=== PATIENT | male | born 1960 | race Caucasian/White ===

== ENCOUNTER 2016-11-26 15:36 | Emergency (ER) | payer OTHER ==
[2016-11-26] MEDS ORDERED: NICOTINE 21 MG/24 HOURS TOPICAL PATCH TD ONE (15:54)
[2016-11-26 16:01] VITALS: BP 137/73; PULSE 75; TEMP 97.5; BMI 19.5
--- NOTE | 2016-11-26 16:05 | PDOC ---
Attending Attestation - Resident Resident Name: Robert Garcia - ED Attending Attestation I have performed the following: I have examined & evaluated the patient, The case was reviewed & discussed with the resident, I agree w/resident's findings & plan, Exceptions are as noted - HPI HPI: 11/26/16 18:38 The patient is a 56 year old male, with significant past medical history of seizures and pseudoseizures (on Dilantin), PTSD who presents to the emergency room BIBA s/p 3 seizures, nausea, vomiting and diarrhea starting at 5am this morning. The patient fell multiple times when he was seizing and the sister in law reports that he hit his head and right shoulder when he fell. Sister in law reports generalized tonic clonic seizure where his entire body shakes, he loses consiousness and he has urine incontinence. He was also sweating profusely as per his sister in law. He notes that he had multiple episodes of vomiting that is yellow in color. The sister in law states that he has not had a seizure in a long time and believes that it may have been triggered when the patient received bad news about his son yesterday. The patient admits that he has only been intermittently taking his dilantin as well. He has an appointment on Thursday with Dr. Buchanan from the [facility] (per his ). Denies tarry and bloody stool. Denies fever, chills, nausea, vomiting. Denies hematemesis. Denies any urinary changes. Denies focal weakness or numbness. - Physicial Exam PE: 11/26/16 20:48 GENERAL: Awake, alert, and fully oriented, in no acute distress. Thin with temporal wasting HEAD: No signs of trauma EYES: PERRLA, EOMI, sclera anicteric, conjunctiva clear ENT: Auricles normal inspection, hearing grossly normal, nares patent, oropharynx clear without exudates. dry MM, poor dentition NECK: Normal ROM, supple, no lymphadenopathy, JVD, or masses LUNGS: Breath sounds equal, clear to auscultation bilaterally. No wheezes, and no crackles HEART: Regular rate and rhythm, normal S1 and S2, no murmurs, rubs or gallops ABDOMEN: Soft, nontender, normoactive bowel sounds. No guarding, no rebound. No masses EXTREMITIES: No ttp over R or L shoulders, no deformities. Normal range of motion, no edema. No clubbing or cyanosis. No cords, erythema, or tenderness. 2 + radial pulses. BACK: No midline spinal tendernes in cervial/throacic/lumbar region NEUROLOGICAL: Normal speech, cranial nerves intact, negative pronator drift, 5/ 5 strength in all 4 extremities, normal sensation to light touch in all 4 extremities, normal cerebellar exam, normal gait, normal reflexes and tone SKIN: Warm, Dry, normal turgor, no rashes or lesions noted. - Medical Decision Making 11/26/16 20:48 56yo M hx seizures and pseudoseizures, PTSD p/w 3 seizures in the setting of non bloody vomiting and diarrhea. + LOC and headstrike. Pt reports poor compliance with his dilantin. Exam here non focal and atraumatic. Will search for reversible causes of multiple seizures, including metabolic vs
--- NOTE | 2016-11-26 17:39 | PDOC ---
History of Present Illness - General Chief Complaint: Seizure Stated Complaint: SEIZURE Time Seen by Provider: 11/26/16 15:42 History Source: Patient Exam Limitations: No Limitations - History of Present Illness Initial Comments: 11/26/16 17:37 Patient was brought in by EMS for suspected seizures, falls, and LOC. Was combative, argumentative, and yelling on multiple occasions. Security was called twice. I have passed care for the patient to my attending. Past History - Past Medical History Allergies/Adverse Reactions: Allergies Allergy/AdvReac Type Severity Reaction Status Date / Time No Known Allergies Allergy Verified 11/26/16 16:01 Home Medications: Ambulatory Orders NK [No Known Home Medication] 11/26/16 Anemia: No Cardiac Disorders: No CVA: No COPD: No CHF: No HTN: No Hypercholesterolemia: No Seizures: Yes - Immunization History Immunization Up to Date: Yes - Suicide/Smoking/Psychosocial Hx Smoking History: Current every day smoker Have you smoked in the past 12 months: Yes Number of Cigarettes Smoked Daily: 10 Cigars Per Day: 10 Information on smoking cessation initiated: Yes 'Breaking Loose' booklet given: 02/27/15 Hx Alcohol Use: No Drug/Substance Use Hx: No Substance Use Type: None Hx Substance Use Treatment: No Review of Systems - Review of Systems Able to Perform ROS?: No *Physical Exam - Vital Signs Last Vital Signs Temp Pulse Resp BP Pulse Ox 97.5 F L 75 18 137/73 99 11/26/16 15:40 11/26/16 15:40 11/26/16 15:40 11/26/16 15:40 11/26/16 15:40 - Physical Exam Comments: 11/26/16 17:38 Combative and argumentative. PE not done. ED Treatment Course - LABORATORY CBC & Chemistry Diagram: 11/26/16 19:00 11/26/16 22:20 - Medications Given in the ED: ED Medications Discontinued Medications Generic Name Dose Route Start Last Admin Trade Name Freq PRN Reason Stop Dose Admin Nicotine 21 mg 11/26/16 15:54 11/26/16 16:58 Nicoderm Patch - TD 11/26/16 15:55 21 mg ONCE ONE Administration Medical Decision Making - Medical Decision Making 11/26/16 17:38 Patient was seen by attending. *DC/Admit/Observation/Transfer Diagnosis at time of Disposition: Seizure disorder - Discharge Dispostion Disposition: ELP Condition at time of disposition: Improved - Patient Instructions Printed Discharge Instructions: DI for Seizure Disorder -- Adult
[2016-11-26 19:16] LABS: BASOPHIL 0.7 % (0-2.0); EOSINOPHIL 0.2 % (0-4.5); MCH 31.3 pg (25.7-33.7); MCHC 34.2 g/dl (32.0-35.9); MEAN CELL VOLUME 91.7 fl (80-96); MEAN PLT VOLUME 7.2 fl (7.5-11.1); NEUTROPHILS 71.2 % (42.8-82.8); PLATELET COUNT 294 K/MM3 (134-434); RDW 14.1 % (11.9-15.9); WHITE BLOOD COUNT 7.6 K/mm3 (4.0-10.0)
[2016-11-26] MEDS ORDERED: SODIUM CHLORIDE 0.9% 500 ML INFUS.BAG IV ONE (20:14)
[2016-11-26] MEDS ORDERED: PHENYTOIN NA EXTENDED 100 MG CAPSULE (FP) PO ONE (21:30)
[2016-11-26] MEDS ORDERED: PHENYTOIN NA EXTENDED 100 MG CAPSULE (FP) ONE (21:58)
--- NOTE | 2016-11-26 22:12 | PDOC ---
*Physical Exam - Vital Signs Last Vital Signs Temp Pulse Resp BP Pulse Ox 97.5 F L 75 18 137/73 99 11/26/16 15:40 11/26/16 15:40 11/26/16 15:40 11/26/16 15:40 11/26/16 15:40 ED Treatment Course - LABORATORY CBC & Chemistry Diagram: 11/26/16 19:00 11/26/16 19:00 - ADDITIONAL ORDERS Additional order review: Laboratory Results 11/26/16 11/26/16 19:00 19:00 Sodium Cancelled Potassium Cancelled Chloride Cancelled Carbon Dioxide Cancelled Anion Gap Cancelled BUN Cancelled Creatinine Cancelled Creat Clearance w eGFR Cancelled Random Glucose Cancelled Calcium Cancelled Magnesium Cancelled Total Bilirubin Cancelled AST Cancelled ALT Cancelled Alkaline Phosphatase Cancelled Total Protein Cancelled Albumin Cancelled Phenytoin < 2.5 L D 11/26/16 19:00 RBC 5.25 MCV 91.7 MCHC 34.2 RDW 14.1 MPV 7.2 L Neutrophils % 71.2 D Lymphocytes % 22.5 D Monocytes % 5.4 Eosinophils % 0.2 D Basophils % 0.7 - Medications Given in the ED: ED Medications Discontinued Medications Generic Name Dose Route Start Last Admin Trade Name Darq PRN Reason Stop Dose Admin Nicotine 21 mg 11/26/16 15:54 11/26/16 16:58 Nicoderm Patch - TD 11/26/16 15:55 21 mg ONCE ONE Administration Medical Decision Making - Medical Decision Making 11/26/16 22:49 while awaiting the rest of his labs, pt suddenly became combative and began to walk out. Both security and [employer] was called. 11/26/16 22:51 Pt did take 500mg of the 1gram of Dilantin that was ordered. *DC/Admit/Observation/Transfer Diagnosis at time of Disposition: Seizure disorder - Discharge Dispostion Disposition: ELOPED Condition at time of disposition: Improved Admit: No - Patient Instructions Printed Discharge Instructions: DI for Seizure Disorder -- Adult
[2016-11-26 23:05] LABS: ALBUMIN 3.7 g/dl (3.4-5.0); ANION GAP 11 (8-16); BILIRUBIN,TOTAL 0.6 mg/dL (0.2-1.0); CALCIUM 9.1 mg/dL (8.5-10.1); CO2 26 mmol/L (21-32); GLUCOSE,RANDOM 106 mg/dL (74-106); SGOT/AST 10 U/L (15-37); SGPT/ALT 17 U/L (12-78); TOT PROT 6.5 g/dl (6.4-8.2)
[2016-11-26 23:06] LABS: ALK PHOS 85 U/L (45-117)
--- NOTE | 2016-11-27 10:27 | EKG ---
Test Reason : Blood Pressure : / mmHG Vent. Rate : 072 BPM Atrial Rate : 072 BPM P-R Int : 158 ms QRS Dur : 098 ms QT Int : 388 ms P-R-T Axes : 070 -11 050 degrees QTc Int : 424 ms NORMAL SINUS RHYTHM INCOMPLETE RIGHT BUNDLE BRANCH BLOCK CANNOT RULE OUT ANTERIOR INFARCT , AGE UNDETERMINED ABNORMAL ECG NO PREVIOUS ECGS AVAILABLE Confirmed by NILA DEVINE MD ([id number]) on 11/27/2016 10:26:25 AM Referred By: Confirmed By:NILA DEVINE MD
[2016-11-27] MEDS ORDERED: NICOTINE 21 MG/24 HOURS TOPICAL PATCH TD ONE (15:54)
== END 2016-11-26 22:45 | disposition left against medical advice (07) ==
LOC: JER 15:36
PROC: 3E0337Z Introduction of Electrolytic and Water Balance Substance into Peripheral Vein, Percutaneous Approach (ICD-10-PCS; principal; 2016-11-26)
DX: G40.909 Epilepsy, unspecified, not intractable, without status epilepticus (principal); F43.10 Post-traumatic stress disorder, unspecified
CPT/HCPCS: 36415; 70450-TC; 71020-TC; 73030-TC-RT; 80053; 80185; 85025; 93005; 93010; 99283-25

== ENCOUNTER 2017-07-08 00:53 | Emergency (ER) | payer OTHER ==
[2017-07-08] MEDS ORDERED: PRESCRIPTION PAD 1 EACH EACH NR ONE (03:12)
[2017-07-08 04:55] LABS: HEMATOCRIT 43.1 % (35.4-49); HEMOGLOBIN 14.5 GM/dL (11.7-16.9); MCHC 33.6 g/dl (32.0-35.9); PLATELET COUNT 293 K/MM3 (134-434); RBC 4.68 M/mm3 (4.00-5.60); RDW 14.7 % (11.9-15.9); WHITE BLOOD COUNT 7.5 K/mm3 (4.0-10.0)
[2017-07-08 04:56] LABS: BASO % 0.3 % (0-2.0); EOS % 0.2 % (0-4.5); LYMPH % 18.3 % (8-40); MEAN PLT VOLUME 7.8 fl (7.5-11.1); MONO % 5.3 % (3.8-10.2); NEUT % 75.9 % (42.8-82.8)
[2017-07-08 05:28] LABS: ALBUMIN 3.9 g/dl (3.4-5.0); ALK PHOS 77 U/L (45-117); ANION GAP 14 (8-16); BILIRUBIN,TOTAL 0.6 mg/dL (0.2-1.0); BLOOD UREA NITROGEN 15 mg/dL (7-18); CALCIUM 9.2 mg/dL (8.5-10.1); CHLORIDE 106 mmol/L (98-107); CO2 22 mmol/L (21-32); GLUCOSE,RANDOM 115 mg/dL (74-106); POTASSIUM 3.9 mmol/L (3.5-5.1); SGOT/AST 20 U/L (15-37); SGPT/ALT 21 U/L (12-78); SODIUM 142 mmol/L (136-145); TOT PROT 7.3 g/dl (6.4-8.2)
[2017-07-08 05:31] LABS: LIPASE 92 U/L (73-393)
== END 2017-07-08 03:00 | disposition home or self-care (01) ==
LOC: FER 00:53
DX: R11.2 Nausea with vomiting, unspecified (principal)
CPT/HCPCS: 36415; 80053; 83690; 85025

== ENCOUNTER 2018-03-01 10:20 | Emergency (ER) | payer OTHER ==
[2018-03-01] MEDS ORDERED: SODIUM CHLORIDE 1,000 ML IV ONE (10:34)
[2018-03-01] MEDS ORDERED: ACETAMINOPHEN 1000 MG/100 ML VIAL (NON FORMULARY) IVPB ONE (10:34)
[2018-03-01] MEDS ORDERED: FAMOTIDINE 20 MG/50 ML IVPB 20 MG/50 ML MG IVPB ONE ×2 (10:34→11:12)
[2018-03-01] MEDS ORDERED: ONDANSETRON 4 MG/2 ML VIAL IVPB ONE (10:34)
[2018-03-01 10:37] VITALS: TEMP 97.6; BMI 25.1
[2018-03-01] MEDS ORDERED: ONDANSETRON 4 MG/2 ML VIAL ONE (10:57)
[2018-03-01] MEDS ORDERED: LORazepam 2 MG/ML SDV VIAL ONE (10:57)
[2018-03-01] MEDS ORDERED: ACETAMINOPHEN INJECTION 100 ML IVPB ONE (10:57)
[2018-03-01 11:05] LABS: BASO % 1.6 % (0-2.0); EOS % 0.2 % (0-4.5); HEMATOCRIT 47.6 % (35.4-49); HEMOGLOBIN 15.5 GM/dl (11.7-16.9); LYMPH % 14.5 % (8-40); MCH 30.5 pg (25.7-33.7); MCHC 32.7 g/dl (32.0-35.9); MEAN CELL VOLUME 93.5 fl (80-96); MEAN PLT VOLUME 7.7 fl (7.5-11.1); NEUT % 76.7 % (42.8-82.8); PLATELET COUNT 332 K/MM3 (134-434); RBC 5.09 M/mm3 (4.00-5.60); RDW 14.1 % (11.9-15.9); WHITE BLOOD COUNT 8.2 K/mm3 (4.0-10.8)
--- NOTE | 2018-03-01 11:07 | PDOC ---
History of Present Illness - General Chief Complaint: Vomiting/Diarrhea Stated Complaint: dehydration Time Seen by Provider: 03/01/18 10:34 History Source: Patient, Friend, Old Records Exam Limitations: No Limitations - History of Present Illness Initial Comments: 03/01/18 11:01 57-year-old male with history of seizures on Dilantin presents with friend complaining of 3-4 days of URI symptoms and nausea/vomiting/diarrhea. Patient was at his baseline health, developed nasal congestion and rhinorrhea with dry cough and sneezing, chills and fevers, and subsequently nausea with nonbloody/ nonbilious vomiting and nonbloody diarrhea with decreased oral intake but no abdominal pain. Patient has been unable to tolerate his medications, presents for evaluation and dehydration. No recent travel, no recent antibiotics, girlfriend recently had similar URI symptoms. Patient has been seen in the past per the medical record for nausea/vomiting, diagnosed with gastritis and improved with GI cocktails in the past. Of note, patient has record of being belligerent with hospital staff. No surgical history, no urinary complaints. The patient does smoke cigarettes and marijuana, denies any other drug use or alcohol use. Past History - Past Medical History Allergies/Adverse Reactions: Allergies Allergy/AdvReac Type Severity Reaction Status Date / Time No Known Allergies Allergy Verified 03/01/18 10:32 Home Medications: Ambulatory Orders Ondansetron [Zofran *Odt*] 8 mg SL TID PRN #20 od.tablet 03/01/18 Phenytoin Na Extended [Dilantin -] 100 mg PO ASDIR 03/01/18 Anemia: No Cardiac Disorders: No CVA: No COPD: No CHF: No HTN: No Hypercholesterolemia: No Seizures: Yes - Immunization History Immunization Up to Date: Yes - Suicide/Smoking/Psychosocial Hx Smoking History: Current every day smoker Have you smoked in the past 12 months: Yes Number of Cigarettes Smoked Daily: 10 Cigars Per Day: 10 Information on smoking cessation initiated: Yes 'Breaking Loose' booklet given: 02/27/15 Hx Alcohol Use: No Drug/Substance Use Hx: Yes (marijuana) Substance Use Type: None Hx Substance Use Treatment: No Review of Systems - Review of Systems Constitutional: Yes: Chills, Fever Respiratory: Yes: Cough. No: Shortness of Breath Cardiac (ROS): No: Chest Pain, Syncope ABD/GI: Yes: Diarrhea, Nausea, Vomiting : No: Dysuria, Flank Pain Neurological: No: Headache All Other Systems: Reviewed and Negative *Physical Exam - Vital Signs Last Vital Signs Temp Pulse Resp BP Pulse Ox 97.6 F 85 16 128/87 100 03/01/18 10:31 03/01/18 10:31 03/01/18 10:31 03/01/18 10:31 03/01/18 10:31 - Physical Exam Comments: 03/01/18 11:07 Afebrile here with normal vital signs GENERAL: The patient is awake, alert, and fully oriented, in moderate distress and notably histrionic (screaming for a blanket). + dry cough during exam, + thick yellow nasal discharge HEAD: Normal with no signs of trauma. EYES: PERRL, EOMI, sclera anicteric, conjunctiva clear with no pallor. ENT: oropharynx clear without exudates. Dry mucous membranes. NECK: Normal range of motion, supple without lymphadenopathy, JVD, or masses. LUNGS: Slight coarse breath sounds L base, otherwise clear without wheeze/ crackles. HEART: Regular rate and rhythm, normal S1 and S2 without murmur or rub. ABDOMEN: Thin. Soft/nontender/nondistended. BS wnl. No guarding or rebound. No palpable masses. No hepatosplenomegaly. EXTREMITIES: Normal range of motion, no edema. 2+ distal pulses. No cords, erythema, or tenderness. NEUROLOGICAL: Cranial nerves II through XII grossly intact. Normal speech, normal gait. PSYCH: Aggressive but cooperative with exam, denies SI/HI/AH/VH. SKIN: Warm, Dry, no rashes or lesions noted. Moderate Sedation - Procedure Monitoring Vital Signs: Procedure Monitoring Vital Signs Temperature 97.6 F 03/01/18 10:31 Pulse Rate 85 03/01/18 10:31 Respiratory Rate 16 03/01/18 10:31 Blood Pressure 128/87 03/01/18 10:31 O2 Sat by Pulse Oximetry (%) 100 03/01/18 10:31 Heart Score/ECG Review #1 ECG reviewed & interpreted by me at: 11:21 General ECG Interpretation: Sinus Rhythm, Normal Rate (59), Normal Intervals ( qtc 423, irbbb), No acute ischemic changes ED Treatment Course - LABORATORY CBC & Chemistry Diagram: 03/01/18 10:45 03/01/18 10:45 - RADIOLOGY Radiology Studies Ordered: Category Date Time Status CHEST X-RAY PORTABLE* [RAD] Stat Radiology 03/01/18 10:35 Ordered Medical Decision Making - Medical Decision Making 03/01/18 11:09 57-year-old male with history of seizures resents with 3-4 days of URI symptoms and gastroenteritis type symptoms, slight coarse breath sounds at left base but no peritoneal findings on exam. Presentation could be most consistent with viral etiology, influenza-like illness. Low clinical suspicion for focal infectious process in the abdomen. labs including lipase, trop, and influenza swab ivf rehydration, pain and nausea control recommended IV dilantin since he has been off meds for 3 days but patient refusing "because it melendez" so will attempt oral dose after meds. No sz activity. cxr, ekg reassess 03/01/18 11:49 labs wnl, no leukocytosis trop, lipase, influenza pending. on my prelim review of the cxr, there are no acute abnormalities sxs resolved and now asleep 03/01/18 12:08 comfortably asleep. cxr official read normal awaiting lipase and influenza results then will dispo 03/01/18 13:14 lipase and flu wnl. pt feels MUCH better, tolerating PO, pain resolved. agrees with d/c plan, declined the ordered dilantin and says he wants to take his dose at home. understands return criteria, zofran sent to pharmacy. *DC/Admit/Observation/Transfer Diagnosis at time of Disposition: Vomiting and diarrhea URI (upper respiratory infection) Qualifiers: URI type: unspecified URI Qualified Code(s): J06.9 - Acute upper respiratory infection, unspecified - Discharge Dispostion Disposition: HOME Condition at time of disposition: Improved - Prescriptions Prescriptions: Ondansetron [Zofran *Odt*] 8 mg SL TID PRN #20 od.tablet PRN Reason: Nausea - Referrals - Patient Instructions Printed Discharge Instructions: DI for Viral Upper Respiratory Infection -- Adult, DI for Viral Gastroenteritis -- Adult Additional Instructions: Activity as tolerated. Stay hydrated. Advance diet as tolerated, avoiding dairy , spicy or fatty food, caffeine and alcohol. Blood tests, a chest x-ray, and a flu test were all normal. The symptoms are likely due to viral infections. Take Tylenol for fevers or body aches. Continue your medications, particularly Dilantin, as previously prescribed by your physician. You should follow up with your primary doctor as soon as possible regarding today's emergency department visit. Return to the emergency department for any new or concerning symptoms, particularly difficulty breathing, high fevers or chills, persistent vomiting and dehydration, severe abdominal pain. - Post Discharge Activity
[2018-03-01 11:28] LABS: ALBUMIN 3.9 g/dl (3.5-5.0); ALK PHOS 85 U/L (32-92); ANION GAP 10 MMOL/L (8-16); BILIRUBIN,TOTAL 0.5 mg/dl (0.2-1.0); BLOOD UREA NITROGEN 11 mg/dl (7-18); CALCIUM 9.3 mg/dl (8.4-10.2); CHLORIDE 101 mmol/L (98-107); CO2 24 mmol/L (22-28); GLUCOSE,RANDOM 117 mg/dl (74-106); MAGNESIUM 1.9 mg/dL (1.8-2.4); POTASSIUM 4.4 mmol/L (3.5-5.1); SGOT/AST 20 U/L (10-42); SGPT/ALT 13 U/L (10-40); SODIUM 135 mmol/L (136-145); TOT PROT 7.1 g/dl (6.4-8.3)
[2018-03-01 12:41] LABS: LIPASE 119 U/L (73-393)
[2018-03-01] MEDS ORDERED: PHENYTOIN NA EXTENDED 100 MG CAPSULE (FP) PO ONE (13:11)
[2018-03-01 13:44] VITALS: BP 135/90; PULSE 78
--- NOTE | 2018-03-01 15:32 | EKG ---
Test Reason : Blood Pressure : / mmHG Vent. Rate : 059 BPM Atrial Rate : 059 BPM P-R Int : 162 ms QRS Dur : 102 ms QT Int : 428 ms P-R-T Axes : 078 001 064 degrees QTc Int : 423 ms SINUS BRADYCARDIA INCOMPLETE RIGHT BUNDLE BRANCH BLOCK ANTERIOR INFARCT (CITED ON OR BEFORE 26-NOV-2016) ABNORMAL ECG WHEN COMPARED WITH ECG OF 26-NOV-2016 19:20, NO SIGNIFICANT CHANGE WAS FOUND Confirmed by Saleem Martinez ([id number]) on 03/01/2018 3:32:07 PM Referred By: PASCUAL LUIS Confirmed By:Saleem Martinez
== END 2018-03-01 13:42 | disposition home or self-care (01) ==
LOC: FER 10:20
PROC: 3E033NZ Introduction of Analgesics, Hypnotics, Sedatives into Peripheral Vein, Percutaneous Approach (ICD-10-PCS; principal; 2018-03-01)
PROC: 3E033GC Introduction of Other Therapeutic Substance into Peripheral Vein, Percutaneous Approach (ICD-10-PCS; 2018-03-01)
PROC: 3E0337Z Introduction of Electrolytic and Water Balance Substance into Peripheral Vein, Percutaneous Approach (ICD-10-PCS; 2018-03-01)
DX: R19.7 Diarrhea, unspecified (principal); R11.10 Vomiting, unspecified; J06.9 Acute upper respiratory infection, unspecified
CPT/HCPCS: 36415; 71045-TC-FY; 80053; 82550; 83690; 83735; 84484; 85025; 87804; 93005; 99283-25; J0131; J7030

== ENCOUNTER 2018-03-31 12:01 | Emergency (ER) | payer OTHER ==
[2018-03-31 12:04] VITALS: BMI 24.3
[2018-03-31 12:26] VITALS: BP 106/64; PULSE 67; TEMP 97.8
--- NOTE | 2018-03-31 12:54 | PDOC ---
History of Present Illness - General Chief Complaint: Cold Symptoms Stated Complaint: PRODUCTIVE COUGH Time Seen by Provider: 03/31/18 12:11 - History of Present Illness Initial Comments: 03/31/18 13:49 Chief complaint: Head congestion and nonproductive cough History of present illness: Patient has experienced several days of nasal congestion, nonproductive cough. Review of systems: No fever/chills, chest pain, shortness of breath, abdominal pain, nausea, vomiting, diarrhea, visual or focal neurologic symptoms, urinary tract symptoms. He admits minor body and joint aches. Past medical history: Seizure disorder on Dilantin. Otherwise negative Social/family history reviewed and noncontributory Physical exam: Alert and oriented well-developed well-nourished no acute distress cheerful and cooperative. No tachypnea or dyspnea is evident Afebrile, vital signs normal including normal respiratory rate and oxygen saturation HEENT: Mild nasal congestion, no discharge. Throat clear Neck supple without bruit mass or nodes Chest clear to P&A with full breath sounds bilaterally, no wheezes rales or rhonchi CV regular without murmur rub or gallop Abdomen benign Skin clear, no rash, adequate turgor and wet mucous membranes Extremities no CCE Neurological intact Impression: Viral URI, bronchitis, less likely is community-acquired pneumonia. Respiratory status is stable Plan: Medication as directed, rest and fluids, return to ER if breathing is worse, otherwise follow-up with primary physician Dr. Vásquez in 2 days. Fully ambulatory and in no distress respiratory or otherwise upon discharge to follow- up as directed Past History - Past Medical History Allergies/Adverse Reactions: Allergies Allergy/AdvReac Type Severity Reaction Status Date / Time No Known Allergies Allergy Verified 03/31/18 12:02 Home Medications: Ambulatory Orders Phenytoin Na Extended [Dilantin -] 300 mg PO ASDIR 03/01/18 Amoxicillin - [Amoxicillin 250mg Capsule -] 250 mg PO TID #21 capsule 03/31/18 Guaifenesin Dm [Robitussin Dm -] 10 ml PO Q4H PRN #120 ml 03/31/18 Methyl Salicylate/Menthol [Bengay Greaseless Cream] 1 applic TP BID #1 cream..g. 03/31/18 Anemia: No Cardiac Disorders: No CVA: No COPD: No CHF: No HTN: No Hypercholesterolemia: No Seizures: Yes - Immunization History Immunization Up to Date: Yes - Suicide/Smoking/Psychosocial Hx Smoking History: Current every day smoker Have you smoked in the past 12 months: Yes Number of Cigarettes Smoked Daily: 20 Cigars Per Day: 10 Information on smoking cessation initiated: Yes 'Breaking Loose' booklet given: 02/27/15 Hx Alcohol Use: No Drug/Substance Use Hx: Yes (LI) Substance Use Type: None Hx Substance Use Treatment: No *Physical Exam - Vital Signs Last Vital Signs Temp Pulse Resp BP Pulse Ox 97.8 F 67 18 106/64 100 03/31/18 12:01 03/31/18 12:01 03/31/18 12:01 03/31/18 12:01 03/31/18 12:01 Moderate Sedation - Procedure Monitoring Vital Signs: Procedure Monitoring Vital Signs Temperature 97.8 F 03/31/18 12:01 Pulse Rate 67 03/31/18 12:01 Respiratory Rate 18 03/31/18 12:01 Blood Pressure 106/64 03/31/18 12:01 O2 Sat by Pulse Oximetry (%) 100 03/31/18 12:01 *DC/Admit/Observation/Transfer Diagnosis at time of Disposition: Upper respiratory infection Qualifiers: URI type: unspecified URI Qualified Code(s): J06.9 - Acute upper respiratory infection, unspecified - Discharge Dispostion Disposition: HOME Condition at time of disposition: Stable Decision to Admit order: No - Prescriptions Prescriptions: Amoxicillin - [Amoxicillin 250mg Capsule -] 250 mg PO TID #21 capsule Guaifenesin Dm [Robitussin Dm -] 10 ml PO Q4H PRN #120 ml PRN Reason: Cough Methyl Salicylate/Menthol [Bengay Greaseless Cream] 1 applic TP BID #1 cream..g. - Referrals Referrals: Ramesh Vásquez MD [Primary Care Provider] - 2 Days - Patient Instructions Printed Discharge Instructions: DI for Viral Upper Respiratory Infection -- Adult - Post Discharge Activity
== END 2018-03-31 13:06 | disposition home or self-care (01) ==
LOC: FER 12:01
DX: J06.9 Acute upper respiratory infection, unspecified (principal); F17.210 Nicotine dependence, cigarettes, uncomplicated; R56.9 Unspecified convulsions
CPT/HCPCS: 99281-25

== ENCOUNTER 2019-12-10 02:03 | Emergency (ER) | payer OTHER ==
[2019-12-10 02:11] VITALS: BP 145/93; PULSE 80; TEMP 98; BMI 24.0
--- OUTSIDE RECORDS SUMMARY | 2019-12-10 02:21 | XMS ---
:1960 Author Organization [facility] Care Team Providers Name Role Phone Isaíasandrea Khris Unavailable Khris Mcmahan Unavailable MODESTA ROSS MD IP Unavailable CODY EAGLE, IP Unavailable CODY EAGLE, IP Unavailable CODY EAGLE, IP Unavailable CODY EAGLE, IP Unavailable CODY EAGLE, IP Unavailable [facility] Unavailable Unavailable ED STAFF PHYSICIAN Unavailable Unavailable DEWAYNE EAGLE Unavailable Unavailable DEWAYNE EAGLE Unavailable Unavailable DEWAYNE EAGLE Unavailable Unavailable DEWAYNE EAGLE Unavailable Unavailable DEWAYNE EAGLE Unavailable Unavailable DEWAYNE EAGLE Unavailable Unavailable DEWAYNE EAGLE Unavailable Unavailable DEWAYNE EAGLE Unavailable Unavailable ED STAFF PHYSICIAN Unavailable Unavailable AGYEPONG DESIGN AND SALES CONSULTANT Unavailable AGYEPONG DESIGN AND SALES CONSULTANT Unavailable ED STAFF PHYSICIAN Unavailable Unavailable MODESTA ZELAYA Unavailable Unavailable OTTO DENNIS MD Unavailable Unavailable ED STAFF PHYSICIAN Unavailable Unavailable ED STAFF PHYSICIAN Unavailable Unavailable Re-disclosure Warning The records that you are about to access may contain information from federally- assisted alcohol or drug abuse programs. If such information is present, then the following federally mandated warning applies: This information has been disclosed to you from records protected by federal confidentiality rules (42 CFR part 2). The federal rules prohibit you from making any further disclosure of this information unless further disclosure is expressly permitted by the written consent of the person to whom it pertains or as otherwise permitted by 42 CFR part 2. A general authorization for the release of medical or other information is NOT sufficient for this purpose. The Federal rules restrict any use of the information to criminally investigate or prosecute any alcohol or drug abuse patient.The records that you are about to access may contain highly sensitive health information, the redisclosure of which is protected by Article 27-F of the [facility] Public Health law. If you continue you may haveaccess to information: Regarding HIV / AIDS; Provided by facilities licensed or operated by the [facility] Office of Mental Health; or Provided by the [facility] Office for People With Developmental Disabilities. If such information is present, then the following [facility] mandated warning applies: This information has been disclosed to you from confidential records which are protected by state law. State law prohibits you from making any further disclosure of this information without the specific written consent of the person to whom it pertains, or as otherwise permitted by law. Any unauthorized further disclosure in violation of state law may result in a fine or longterm sentence or both. A general authorization for the release of medical or other information is NOT sufficient authorization for further disclosure. Allergies and Adverse Reactions Type Description Substance Reaction Status Data Source(s ) Allergy to No Known Allergies No known [facility] ([facility] substance allergies [facility] ([facility] ) Allergy to No Known Allergies No known GREENW AY ([facility] substance allergies [facility] ([facility] ) Encounters Encounter Providers Location Date Indications Data Source(s ) Inpatient 12/06/2019 [facility] unty 02:33:00 PM Health Care EDT [facility] Inpatient 12/06/2019 [facility] unty 02:33:00 PM Health Care EDT [facility] Inpatient 12/06/2019 [facility] unty 09:00:00 AM Health Care EDT [facility] Inpatient 12/06/2019 [facility] unty 09:00:00 AM [facility] EDT [facility] Inpatient Attender: RICHIE 11/21/2019 R/O SEIZURE [facility] ROBERTAdmitter: 02:12:00 PM Health C are OTTO DENNIS MD EDT - Corporatio n 11/30/2019 06:31:00 PM EDT R/O SEIZURE Outpatient Attender: RICHIE 11/20/2019 R/O SEIZURE [facility] ROBERTAdmitter: JEANNIE, 03:17:00 PM EDT [facility] OTTO EAGLE [facility] R/O SEIZURE Emergency Attender: JOSÉ MIGUEL ED STAFF H 09/15/2019 10:25:00 AM [facility] PHYSICIANAttender: STAFF ED EDT - 09/15/2019 [facility] STAFF PHYSICIANAdmitter: 11:40:00 AM EDT JOSÉ MIGUEL ED STAFF PHYSICIAN Patient discharged. Outpatient Attender: MHAW9 [facility] 04/26/2019 12:15:26 PM [facility] ([facility]) Patient admitted. Emergency Attender: ED STAFF H 04/08/2019 08:10:00 PM [facility] PHYSICIANAttender: STAFF ED EST - 04/08/2019 [facility] STAFF PHYSICIANAdmitter: ED 10:00:00 PM EST STAFF PHYSICIAN Patient discharged. Emergency Attender: ANDREI ED STAFF H 04/03/2019 07:37:00 AM [facility] PHYSICIANAttender: STAFF ED EST - 04/03/2019 [facility] STAFF PHYSICIANAdmitter: ANDREI 05:04:00 PM EST ED STAFF PHYSICIAN Patient discharged. Emergency Attender: STAFF ED STAFF H 03/10/2019 12:50:00 AM [facility] PHYSICIAN EST - 03/10/2019 01:15:00 Center AM EST Patient discharged. Emergency Attender: STAFF ED STAFF H 02/27/2019 11:43:00 PM [facility] PHYSICIAN EST - 02/28/2019 09:33:00 Center AM EST Patient discharged. Emergency Attender: ED STAFF H 02/26/2019 06:36:00 AM [facility] PHYSICIANAttender: STAFF ED EST - 02/26/2019 [facility] STAFF PHYSICIANAdmitter: ED 12:09:00 PM EST STAFF PHYSICIAN Patient discharged. Emergency Attender: STAFF ED STAFF H 02/22/2019 03:07:00 AM [facility] PHYSICIAN EST - 02/22/2019 08:52:00 Center AM EST Patient discharged. Outpatient 10/19/2018 02:33:45 PM EDT [facility] ([facility]) Patient admitted. Outpatient 10/19/2018 02:33:41 PM EDT [facility] ([facility]) Patient admitted. Outpatient 05/31/2018 [facility] (Nicholas 03:34:38 PM [facility]) Outpatient 05/31/2018 [facility] (Cristopher 03:34:35 PM [facility]) Outpatient<td Attender: Kyle 01/27/2018 GerdEpilepsy and [facility] ID="encounter [facility] 10:30:00 AM Recurrent ([facility] non TypeDescripti [facility] EST - SeizuresGerdEpilepsy N eighborhood onID0">[place]ALK[place] DESIGN AND SALES CONSULTANT Center 01/27/2018 and Recurrent Seizures Health Center) S</td><td>ANTONIO 11:17:57 AM NE [facility] DESIGN AND SALES CONSULTANT</td><td>Y [facility]</td><t d>01/27/2018< /td><td><cont ent ID="encounter DiagnosisID0- 0">Epilepsy and Recurrent Seizures</con tent>, <content ID="encounter DiagnosisID0- 1">Gerd</cont ent></td> Gerd Epilepsy and Recurrent Seizures Gerd Epilepsy and Recurrent Seizures Outpatient<td Attender: Kyle 01/26/2018 DepressionDepression [facility] ID="encounterTypeDescriptionID1">WALKINS</td><td>[facility] 03:00:00 PM (Trevor Contreras [facility]</td><td>[facility]</td><td>01/26/2018</td><td><content DESIGN AND SALES CONSULTANT Center 01/08 Health ID="encounterDiagnosisID1-0">Depression</content></td> 04:27:41 PM Center) EST Depression Depression Unlisted 10/02/2017 [employer] evaluation and 04:00:00 AM (Mental H ealth management EDT - [facility] 10/20/2017 [place]) 04:00:00 AM EDT Unlisted 09/06/2017 [employer] evaluation and 04:00:00 AM (Mental H ealth management EDT [facility]) Outpatient<td Attender: 06/27/2016 [place] ID="encounterType MAURO GOODRICH 05:13:00 PM (Liana Contreras DescriptionID2">[ MD [place] elizalde Patient 06/27/2016 [facility]) Encounter]</td><t 11:59:00 PM d>MAURO BERNARDO MD</td><td> </td><td>06/28/19 17</td><td></td> Outpatient<td Attender: [facility] 10/30/2014 [place] ID="encounterType [facility] 02:21:00 PM (M uriah Contreras DescriptionID3">* MD [place] elizalde No 10/30/2014 [facility]) Show*</td><td>GLE 11:59:00 PM CHERIE BERNARDO MD</td><td>[facility]</td><td></td><td> </td> Outpatient<td Attender: [facility] 08/07/2014 [place] ID="encounterType [facility] 04:00:00 PM (M uriah Contreras DescriptionID4">* MD [place] elizal[place] No 08/07/2014 [facility]) Show*</td><td>GLE 11:59:00 PM CHERIE BERNARDO MD</td><td>[facility]</td><td></td><td> </td> Outpatient<td Attender: [facility] 01/03/2014 [place] ID="encounterType [facility] 03:43:00 PM (M uriah Contreras DescriptionID5">* MD [place] elizal[place] No 01/03/2014 [facility]) Show*</td><td>GLE 11:59:00 PM CHERIE BERNARDO MD</td><td>[facility]</td><td></td><td> </td> Outpatient<td Attender: [facility] 07/15/2012 [place] ID="encounterType [facility] 11:19:00 AM (Mo ascencion Contreras DescriptionID6">* CODY EAGLE EDT - [facility] No 07/15/2012 [facility]) Show*</td><td>MARIANA 11:59:00 PM ERT IP CODY BERNARDO MD</td><td>[facility]</td><td></td><td> </td> Outpatient<td Attender: [facility] 07/07/2012 [place] ID="encounterType [facility] 05:19:00 PM ([facility] DescriptionID7">* CODY EAGLE EDT - Neighb orhood No 07/07/2012 Health Center) Show*</td><td>MARIANA 11:59:00 PM ERT WENDIE BERNARDO MD</td><td>[facility]</td><td></td><td> </td> Outpatient<td Attender: [facility] 06/08/2012 Bulging [place] ID="encounterType [facility] 02:53:00 PM Intervertebral ([place] DescriptionID8">W CODY EAGLE EDT - Disc Neighb orhood MILDRED</td><td>RO 06/08/2012 LumbarBulging Heal Center) TALIB ROSS 05:06:15 PM Intervertebral </td><td>Tone EDT Disc [facility] LumbarChronic Center</td><td>04 PainChronic Pain /04/2012</td><td> <content ID="encounterDiag nosisID8-0">Chron ic Pain</content>, <content ID="encounterDiag nosisID8-1">Bulgi ng Intervertebral Disc Lumbar</content>< /td> Bulging Intervertebral Disc Lumbar Bulging Intervertebral Disc Lumbar Chronic Pain Chronic Pain Outpatient<td Attender: [facility] 03/26/2012 [place] ID="encounterTypeDescriptionID9">*No [facility] 03:14:00 P M ([place] Show*</td><td>Martir PAGAN Center EST - Neighborhood </td><td>[facility] 03/26/2012 Health [place]</td><td>03/26/2012</td><td></td> 11:59:0 0 PM Center) EST Outpatient<td Attender: 08/11/2011 [place] ID="[id number]">*No Khris 05:08:00 PM ([place] Show*</td><td>Martir PAGAN EDT - Neighborhood MD</td><td> 08/11/2011 Health </td><td>08/11/2011</td><td></td> 11:59:00 PM Center) EDT Outpatient<td [facility] 11/18/2010 [place] ID="[id number]">[facility] 02:00: 00 PM (Trevor Contreras </td><td> Center EDT - Neighborhood </td><td>[facility] 11/18/2010 [facility] Center</td><td>11/18/2010</td><td></td> 11:59:0 0 PM Center) EDT Outpatient<td Attender: [facility] 10/02/2010 [place] ID="[id number]">Follow [facility] 10:45: 00 AM (Trevor Contreras Up</td><td>Martir PAGAN [place] EDT - Neighborhood MD</td><td>[facility] 10/02/2010 [facility] Center</td><td>10/02/2010</td><td></td> 11:59:0 0 PM Center) EDT Medications Medication Brand Start Product Dose Route Administrative Pharm[facility] Indications Reaction Description Data Name Date Form Instructions Instructions Source(s) Ativan Ativan mg UNK active Ativan [facility] (Lorazepam) (Loraz 2019 (Lorazepam) [facility]) 12:48: Injection 2 Healt h I 54 PM mg IVP Care EDT Corporatio n Medication administered onsite 0.9% NaCl 0.9% NaCl 11/20/2019 1000 mL UNK active 0.9% [place] IV IV 12:48:50 PM EDT NaCl IV C [facility] 1000 mL [employer] Medication administered onsite Oxycodone OxyCODONE 01/29/2018 UNIT 1 active Ox yCODONE NGOZI Hydrochloride HCl 30MG 12:00:00 AM HCl ([place] 30 MG Oral Oral Tablet EST [facility] OxyCODONE HCl [place] ) 30MG Oral Tablet Omeprazole 20 Omeprazole 01/27/2018 UNIT 1 active Omeprazole NGOZI MG Delayed 20MG Oral 12:00:00 AM ([place] Release Oral Capsule EST Neig hborhood Capsule Delayed Health Omeprazole 20MG Release C enter) Oral Capsule Delayed Release Acetaminophen Percocet 06/08/2012 UNIT 1 suspended Percocet NGOZI 325 MG / 10-325MG OR 12:00:00 AM ([place] Oxycodone TABS EDT [place] Hydrochloride Health 10 MG Oral Center) Tablet Percocet 10-325MG OR TABS Acetaminophen Percocet 06/08/2012 UNIT 1 suspended Percocet NGOZI 325 MG / 10-325MG OR 12:00:00 AM ([place] Oxycodone TABS EDT [place] Hydrochloride Health 10 MG Oral Center) Tablet Percocet 10-325MG OR TABS No Discharge completed We [facility] exist for [employer] [facility] this episode. [facility] [email or web address] Insurance Providers Payer name Policy type / Policy ID Covered Covered green party's Policy Plan Coverage type green party ID relationship to Romero Information romero JETHRO [id number] SP [id number] 600 HEALTH NON CAP UNK UNK UNK JETHRO CARE [id number] 01 [id number] [place] JET[place] CARE [id number] 01 [id number] [place] JETHRO [id number] SP [id number] 600 HEALTH NON CAP Jethro [id number] S [id number] 600 Family Planning MKD & EP 3 & 4 Only Dewayne Vision [id number] S [id number] MKD Dental [id number] S [id number] 600 Dentaquest MKD Medicaid [id number] S [id number] Regular Clinic Visit Jethro [id number] S [id number] 600 Healthier Life MKD -- HARP [place] Care Individual 0 Self 0 [place] Policy [place] Care Individual 0 Self 0 [place] Policy Problems, Conditions, and Diagnoses Code Display Name Description Problem Type Effective Data Sour ce(s) Dates [id number] Epilepsy Epilepsy and Problem 01/29/2018 [place] ([place] (disorder) Recurrent 12:00:00 AM Ben Seizures [facility]) [id number] Depressive Depression Problem 01/29/2018 [place] (Moun t disorder 12:00:00 AM Ben (disorder) [facility]) 530.81 Gerd Gerd Problem 01/29/2018 [place] (Moun t 12:00:00 AM [facility]) [id number] Epilepsy Epilepsy and Problem 01/29/2018 NGOZI ([place] (disorder) Recurrent 12:00:00 AM [place] Seizures [facility]) 64639231 Depressive Depression Problem 01/29/2018 NGOZI (Moun t disorder 12:00:00 AM [place] (disorder) [facility]) 8136992172 Gerd Gerd Problem 01/27/2018 NGOZI (Moun t 12:00:00 AM [facility]) 986220587 Osteoarthritis Osteoarthritis Problem 06/27/2016 [facility] ([place] (disorder) 12:00:00 AM [facility]) 039416130 Osteoarthritis Osteoarthritis Problem 06/27/2016 [facility] [facility] ([place] (disorder) 12:00:00 AM [facility]) 27811530 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1 Imprisonment and IMPRISONMENT AND Diagnosis 11/30/2019 Alfredo sanchez other OTHER 06:31:00 PM [facility] incarceration INCARCERATION EDT Care [facility] Z20.828 Contact with and CONTACT W AND Diagnosis 11/30/2019 [facility] mina (suspected) EXPOSURE TO OTH 06:31:00 PM [facility] exposure to other VIRAL EDT Care viral communicable COMMUNICABLE Seferino oration diseases DISEASES M51.37 Other OTHER Diagnosis 11/30/2019 [place] intervertebral INTERVERTEBRAL 06:31:00 PM [facility] disc degeneration, DISC EDT Care lumbosacral region DEGENERATION, Cor poration LUMBOSACRAL REGION B95.7 Other OTH Diagnosis 11/30/2019 [place] staphylococcus as STAPHYLOCOCCUS 06:31:00 PM [facility] the cause of THE CAUSE OF EDT Care diseases DISEASES CLASSD Corporati on classified ELSWHR elsewhere M19.90 Unspecified UNSPECIFIED Diagnosis 11/30/2019 [place] osteoarthritis, OSTEOARTHRITIS, 06:31:00 PM [facility] unspecified site UNSPECIFIED SITE EDT [employer] L02.214 Cutaneous abscess CUTANEOUS ABSCESS Diagnosis 11/30/2019 [place] of groin OF GROIN 06:31:00 PM [facility] EDT [facility] R53.1 Weakness WEAKNESS Diagnosis 11/21/2019 [place] 02:12:00 PM [facility] EDT [facility] Z53.21 Procedure and PROC/TRTMT NOT Diagnosis 09/15/2019 [place] osep treatment not CRD OUT D/T PT LV 10:25:00 AM Med ical Center carried out due to BEF SEEN BY [facility] EDT patient leaving CARE PROV prior to being seen by health care provider R56.9 Unspecified UNSPECIFIED Diagnosis 09/15/2019 [place] [facility] convulsions CONVULSIONS 10:25:[address] EDT Z53.20 Procedure and PROC/TRTMT NOT Diagnosis 04/08/2019 [facility] osephs treatment not CRD OUT BEC PT 08:10:00 PM Medica l Center carried out DECISION FOR UNSP EST because of REASONS patient's decision for unspecified reasons G40.909 Epilepsy, EPILEPSY, UNSP, Diagnosis 04/08/2019 [facility] ephs unspecified, not NOT INTRACTABLE, 08:10:00 PM edical Center intractable, WITHOUT STATUS EST without status EPILEPTICUS epilepticus Z59.0 Homelessness HOMELESSNESS Diagnosis 04/03/2019 [facility] 07:37:00 AM Medical Cente r EST Z72.0 Tobacco use TOBACCO USE Diagnosis 04/03/2019 [facility] 07:37:00 AM Medical Cente r EST F10.129 Alcohol abuse with ALCOHOL ABUSE Diagnosis 02/27/2019 Randy nt [place] intoxication, WITH 11:43:00 PM Medical Ce nter unspecified INTOXICATION, EST UNSPECIFIED F17.210 Nicotine NICOTINE Diagnosis 02/26/2019 [place] dependence, DEPENDENCE, 06:36:[address] cigarettes, CIGARETTES, EST uncomplicated UNCOMPLICATED R52 Pain, unspecified Pain, unspecified Diagnosis 05/11/2018 [place] ([facility] 07:34:47 PM [facility]) Z76.0 Encounter for Encounter for Diagnosis 05/11/2018 NGOZI ([facility] issue of repeat issue of repeat 07:34:47 PM [place] non prescription prescription EST [facility]) K21.9 Gastro-esophageal Gastro-esophageal Diagnosis 05/11/2018 NGOZI ([facility] reflux disease reflux disease 07:34:47 PM [place] without without EST Neighborhood esophagitis esophagitis [facility] r) M51.36 Other Other Diagnosis 05/11/2018 NGOZI (Moun t intervertebral intervertebral 07:34:47 PM [place] disc degeneration, disc EST Neighb orhood lumbar region degeneration, Health C enter) lumbar region Results ID Date Data Source [id number] 11/30/2019 06:14:00 AM EDT [facility] [id number] Corporation Name Value Range Interpretation Description Data Sup porting Code Source(s) Document(s ) Leukocytes 8.0 k/mm3 4.8-10 <td> 11/30/2019 [place] [#/volume] in .8 06:14</td><td> [facility] Blood by k/mm3 WBC </td><td> [employer] [facility] Automated count [email or web address] 8.0
(4.8-10.8) k/mm3 </td> Erythrocytes 4.39 m/mm3 4.70-6 <td> 11/30/2019 [facility] [#/volume] in .10 06:14</td><td> [facility] Blood m/mm3 RBC Health Care </td><td><ePatientFinder raph styleCode="Bold "> 4.39 L </paragraph>
(4.70-6.10) m/mm3 </td> Hemoglobin 13.3 g/dL 14.0-1 <td> 11/30/2019 [place] [Mass/volume] 8.0 06:14</td><td> [facility] in Blood g/dL HGB Health Care </td><td><ePatientFinder raph styleCode="Bold "> 13.3 L </paragraph>
(14.0-18.0) g/dL </td> Erythrocyte 30.3 pg 27.0-3 <td> 11/30/2019 [place] mean 1.5 pg 06:14</td><td> County corpuscular MCH </td><td> Health Care hemoglobin Corporation [Entitic mass] 30.3 by Automated count
(27.0-31.5) pg </td> Erythrocyte 93.6 fL 80.0-9 <td> 11/30/2019 [place] mean 4.0 fL 06:14</td><td> County corpuscular MCV </td><td> Health Care volume [[employer] volume] by 93.6 Automated count
(80.0-94.0) fL </td> Hematocrit 41.1 % 40.8-4 <td> 11/30/2019 [place] [Volume 6.9 % 06:14</td><td> County Fraction] of HCT </td><td> Health Care Blood by Corporation Automated count 41.1
(40.8-46.9) % </td> Erythrocyte 14.0 % 11.5-1 <td> 11/30/2019 [place] distribution 4.5 % 06:14</td><td> County width [Entitic RDW </td><td> Health Car e volume] by [email or web address] Automated count 14.0
(11.5-14.5) % </td> Erythrocyte 32.4 % 32.0-3 <td> 11/30/2019 [place] mean 6.0 % 06:14</td><td> County corpuscular MCHC </td><td> Health Care hemoglobin Corporation concentration 32.4 [Mass/volume] in Blood from
Fetus by (32.0-36.0) % Automated count </td> Platelet mean 9.6 fL 9.8-12 <td> 11/30/2019 [facility] r volume [Entitic .8 fL 06:14</td><td> County volume] in MPV Health Care Blood by </td><td><leticia [email or web address] Automated count raph styleCode="Bold "> 9.6 L </paragraph>
(9.8-12.8) fL </td> Platelets 356 k/mm3 160-41 <td> 11/30/2019 [place] [#/volume] in 0 06:14</td><td> [facility] Blood by k/mm3 Platelet Count Health Care Automated count </td><td> [email or web address] 356
(160-410) k/mm3 </td> Lymphocytes 32.7 % 16.0-5 <td> 11/25/2019 [place] [#/volume] in 0.0 % 05:45</td><td> [facility] Blood by Lymphocytes Health [facility] Automated count </td><td> [email or web address] 32.7
(16.0-50.0) % </td> Monocytes/Leuko 8.8 % 0.0-11 <td> 11/25/2019 [facility] cytes [Pure .0 % 05:45</td><td> [facility] number Monocytes. Health Care fraction] in </td><td> [email or web address] Blood by Automated count 8.8
(0.0-11.0) % </td> Basophils+Eosin 7.5 % 0.0-5. <td> 11/25/2019 [facility] ophils+Monocyte 0 % 05:45</td><td> [facility] s [#/volume] in Eosinophils Health [facility] Blood by </td><td><leticia [email or web address] Automated count raph styleCode="Bold "> 7.5 H </paragraph>
(0.0-5.0) % </td> Basophils 1.2 % 0.0-2. <td> 11/25/2019 [place] [#/volume] in 0 % 05:45</td><td> [facility] Blood by Basophils [facility] Care Automated count </td><td> [email or web address] 1.2
(0.0-2.0) % </td> Neutrophils [#] 46.9 % 34.0-7 <td> 11/25/2019 [facility] in Body fluid 6.0 % 05:45</td><td> [facility] by Manual count Neutrophils Health Care </td><td> [email or web address] 46.9
(34.0-76.0) % </td> Immature 2.9 % 0.0-0. <td> 11/25/2019 [place] granulocytes/10 5 % 05:45</td><td> County 0 leukocytes in IG% Health Care Blood by </td><td><ePatientFinder Automated count raph styleCode="Bold "> 2.9 H </paragraph>
(0.0-0.5) %
The IG fraction represents metamyelocytes, myelocytes and/or
promyelocytes and is only reported as part of the automated
differential when found at a percentage of less than 6.
If higher than 6%, a manual differential will be performed.

(0.0-0.5) % </td> Potassium 4.6 mEq/L 3.5-5. <td> 11/30/2019 [place] [Moles/volume] 1 06:14</td><td> County in Serum or mEq/L Potassium-Serum Health Care Plasma </td><td> [email or web address] 4.6
(3.5-5.1) mEq/L </td> Glucose 86 mg/dL 70-105 <td> 11/30/2019 [place] [Mass/volume] mg/dL 06:14</td><td> County in Blood Glucose-Serum Health Care </td><td> [email or web address] 86
(70-105) mg/dL </td> Sodium 136 mEq/L 135-14 <td> 11/30/2019 [place] [Moles/volume] 5 06:14</td><td> County in Serum or mEq/L Sodium-Serum Health Care Plasma </td><td> [email or web address] 136
(135-145) mEq/L </td> Carbon dioxide, 25 mEq/L 22-30 <td> 11/30/2019 [facility] total mEq/L 06:14</td><td> [facility] [Moles/volume] CO2 </td><td> Health Car e in Serum or [email or web address] Plasma 25
(22-30) mEq/L </td> Chloride 104 mEq/L 98-107 <td> 11/30/2019 [place] [Moles/volume] mEq/L 06:14</td><td> County in Serum or Chloride Health Care Plasma </td><td> [email or web address] 104
(98-107) mEq/L </td> Creatinine 0.88 mg/dL 0.72-1 <td> 11/30/2019 [place] [Moles/volume] .25 06:14</td><td> County in Serum or mg/dL Creatinine. Health [facility] Plasma </td><td> [email or web address] 0.88
(0.72-1.25) mg/dL </td> Urea nitrogen 17 mg/dL 6-22 <td> 11/30/2019 [facility] r [Mass/volume] mg/dL 06:14</td><td> County in Blood BUN </td><td> copygram 17
(6-22) mg/dL </td> Aspartate 15 U/L 4-35 <td> 11/30/2019 [place] aminotransferas U/L 06:14</td><td> County e [Enzymatic AST (SGOT) Health Care activity/volume </td><td> [email or web address] ] in Serum or Plasma 15
(4-35) U/L </td> Alanine 17 U/L 6-55 <td> 11/30/2019 [place] aminotransferas U/L 06:14</td><td> County e [Enzymatic ALT (SGPT) Health Care activity/volume </td><td> [email or web address] ] in Serum or Plasma 17
(6-55) U/L </td> Proteins - 6.0 g/dL 6.4-8. <td> 11/30/2019 [place] Total 3 g/dL 06:14</td><td> [facility] Proteins - Singular </td><td><leticia raph styleCode="Bold "> 6.0 L </paragraph>
(6.4-8.3) g/dL </td> Bilirubin.total 0.2 mg/dL 0.2-1. <td> 11/30/2019 [facility] [Mass/volume] 3 06:14</td><td> [facility] in Blood mg/dL Bilirubin - Singular </td><td> 0.2
(0.2-1.3) mg/dL </td> Albumin 3.3 g/dL 3.4-4. <td> 11/30/2019 [place] [Mass/volume] 8 g/dL 06:14</td><td> County in Serum or Albumin Health Care Plasma </td><td><ePatientFinder raph styleCode="Bold "> 3.3 L </paragraph>
(3.4-4.8) g/dL </td> Calcium 8.7 mg/dL 8.6-10 <td> 11/30/2019 [place] [Mass/volume] .2 06:14</td><td> County in Blood mg/dL Calcium Health Care </td><td> [email or web address] 8.7
(8.6-10.2) mg/dL </td> Globulin 2.7 gm/dL 2.9-4. <td> 11/30/2019 [place] [Mass/volume] 0 06:14</td><td> County in Serum gm/dL Globulin Health Care </td><td><ePatientFinder raph styleCode="Bold "> 2.7 L </paragraph>
(2.9-4.0) gm/dL </td> Anion gap in 7 mEq/L 7-13 <td> 11/30/2019 [place] Serum or Plasma mEq/L 06:14</td><td> [facility] Anion Gap Health Care </td><td> [email or web address] 7
(7-13) mEq/L </td> Lipemic index No Lipemia <td> 11/30/2019 [facility] er of Serum or 06:14</td><td> [facility] Plasma Lipemia Index Health Care </td><td> [email or web address] No Lipemia
</td> Hemolysis index No <td> 11/30/2019 [facility] of Serum or Hemolysis 06:14</td><td> [facility] Plasma Hemolysis Index Health Care </td><td> [email or web address] No Hemolysis
</td> Phosphate 4.4 mg/dL 2.3-4. <td> 11/30/2019 [place] [Mass/volume] 7 06:14</td><td> County in Serum or mg/dL Inorganic [facility] Care Plasma Phosphorus [facility] </td><td> 4.4
(2.3-4.7) mg/dL </td> Icteric index Not <td> 11/30/2019 [facility] r of Serum or Icteric 06:14</td><td> [facility] Plasma Icteric Index [facility] </td><td> [facility] Not Icteric
</td> aPTT panel - 26.4 secs 25.0-3 <td> 11/30/2019 [place] Platelet poor 6.5 06:14</td><td> [facility] plasma secs Partial [facility] Thromboplastin [facility] Time </td><td> 26.4
(25.0-36.5) secs
PLEASE NOTE: New reference range in effect September 26, 2019.

(25.0-36.5) secs </td> Prothrombin 11.6 secs 9.4-12 <td> 11/30/2019 [place] time (PT) .5 06:14</td><td> [facility] secs Prothrombin [facility] Time. [facility] </td><td> 11.6
(9.4-12.5) secs </td> Hemoglobin A1C 5.4 % 4.0-5. <td> 11/21/2019 [facility] 6 % 06:25</td><td> [facility] Hemoglobin A1C [facility] </td><td> [facility] 5.4
(4.0-5.6) %
Increased risk for diabetes mellitus is seen in patients with HgA1C values
between 5.7-6.4%. Values > or = 6.5% are considered diagnostic of diabetes
mellitus.
Hemolytic anemias, hemoglobinopath ies, or recent transfusion may impact
HbA1c results. Clinical correlation is recommended.
===
ESTIMATED AVERAGE GLUCOSE (eAG)
---
RELATIONSHIP BETWEEN A1C AND eAG
===
A1C(%) eAG(mg/dL)
6 1 26
7 1 54
8 1 83
9 2 12
10 240
11 269
12 298
Source: Adapted from [place] [employer]. Standards of medical
care in diabetes-2014. Diabetes Care.2014;37(Evangelista pp 1):S14-S80, table 8.

(4.0-5.6) % </td> Fibrinogen 402 mg/dL 200-40 <td> 11/21/2019 [place] [Mass/volume] 0 06:25</td><td> County in Platelet mg/dL Fibrinogen Health Care poor plasma by [employer] Coagulation </td><td><leticia assay raph styleCode="Bold "> 402 H </paragraph>
(200-400) mg/dL
PLEASE NOTE: New reference range in effect September 26, 2019.

(200-400) mg/dL </td> Magnesium 1.9 mg/dL 1.6-2. <td> 11/30/2019 [place] [Mass/volume] 6 06:14</td><td> County in Serum or mg/dL Magnesium Level Health Care Plasma </td><td> [email or web address] 1.9
(1.6-2.6) mg/dL </td> Cholesterol 149 mg/dL 125-24 <td> 11/21/2019 [place] [Moles/volume] 0 06:25</td><td> County in Serum or mg/dL Cholesterol Health Care Plasma </td><td> [email or web address] 149
(125-240) mg/dL </td> Cholesterol in 47 mg/dL >60 <td> 11/21/2019 [facility] er HDL mg/dL 06:25</td><td> [facility] [Mass/volume] HDL Cholesterol Health Car e in Serum or </td><td> [email or web address] Plasma 47
(>60) mg/dL </td> Cholesterol in 90 mg/dL <150 <td> 11/21/2019 [facility] er LDL mg/dL 06:25</td><td> [facility] [Mass/volume] LDL Cholesterol Health Car e in Serum or </td><td> [email or web address] Plasma 90
(<150) mg/dL </td> Triglyceride 59 mg/dL 30-200 <td> 11/21/2019 [place] [Mass/volume] mg/dL 06:25</td><td> County in Serum or Triglyceride Health Care Plasma </td><td> [email or web address] 59
(30-200) mg/dL </td> Glucose 117 mg/dL 70-105 <td> 11/30/2019 [place] [Mass/volume] mg/dL 11:36</td><td> County in Capillary Glucose - Health Care blood by F[email or web address] Glucometer </td><td><leticia raph styleCode="Bold "> 117 H </paragraph>
(70-105) mg/dL
RN notified

(70-105) mg/dL </td> ID Date Data Source [id number] 11/28/2019 12:35:00 PM EDT [facility] Corporation Name Value Range Interpretation Code Description Data Lilo rce(s) Supporting Document(s ) SARS-COV-2 [place] RNA RT-PCR [facility] This lab was ordered by [facility] and reported by . ID Date Data Source [id number] 11/24/2019 12:10:00 PM EDT [facility] [id number] Corporation Name Value Range Interpretation Description Data Sup porting Code Source(s) Document(s ) Echo 2D [id number] [facility] <td> 11/24/2019 [facility] er M-Mode [id number] 12:10</td><td> [facility] [id number] Echo 2D M-[facility] Health Care (TTE) Non-Invasive Complete (TTE) [email or web address] Cardiology </td><td> Laboratory [id number] Advanced
Physician [facility] Services[facility]
[id number] [place]
[address] Phone [phone] Non-Invasive Adult
Echocardiogram Cardiology Report Name:
WERNER MCGEE Laboratory
Study Date: Advanced 11/24/2019
12:10 PM MRN: Physician [id number]
Services, PC BP: 130/81
mmHg : [address]
Gender: [place], [place] Male Age: 59
yrs [id number]
Height: 71 in Phone [phone] Account
Number: [phone] Fax [phone]
[phone] Weight: 166 lb [phone] BSA: 1.9 m2
Patient Adult Location: 3SW Echocardiogram Reason For Report Study:
TACHYCARDIA Name: Parveen MCGEE Physician: DYLAN PETERS Study Date: Performed By: 11/24/2019 Shayla Farris 12:10 PM
Interpretation Summary The study was BP: technically 130/81 mmHg difficult.
The left : ventricle is 1960 normal in size. There is Gender: normal left Male ventricular
Age: wall thickness. 59 yrs Left ventricular Height: 71 systolic in function is
normal. The Account Number: nichole [id number] ventricular wall motion is Weight: 166 lb normal. Left
ventricular BSA: 1.9 m2 ejection fraction is
65%. Grade I Patient diastolic Location: 3SW dysfunction,
consistent with Reason For abnormal LV Study: relaxation. TACHYCARDIA The right ventricular

systolic Ordering function is Physician: normal. There DYLAN PETERS was
insufficient Performed By: tricuspid Shayla Farris regurgitation detected to

calculate Interpretation pulmonary Summary artery systolic
pressure. The The study was aortic root is technically at the upper difficult. limits of
normal in size. The left ICD-10 ventricle is R00.0 - normal in size. Tachycardia. Procedure
There [address] - A is normal left complete ventricular two-dimensional wall thickness. transthoracic echocardiogram
Left was ventricular performed. The systolic study was function is technically normal. difficult.
Left Ventricle The left The left ventricular ventricle is wall motion is normal in size. normal. There is normal
left Left ventricular ventricular wall ejection thickness. Left fraction is ventricular 65%. systolic
Grade function is I diastolic normal. Left dysfunction, ventricular consistent with ejection abnormal LV fraction is relaxation. 65%. The left
ventricular The right wall motion is ventricular normal. Grade systolic I diastolic function is dysfunction, normal. consistent with
abnormal LV There was relaxation. insufficient Right tricuspid Ventricle The regurgitation right ventricle detected to is normal in calculate size. There is
normal right pulmonary ventricular artery systolic wall thickness. pressure. The right
ventricular The aortic root systolic is at the upper function is limits of normal. normal in size. Left Atrium Indexed left

atrial volume ICD-10 is normal. LA
ESV Index (BP) R00.0 - - 12.3 ml/m2. Tachycardia. Right Atrium Normal right

atrial size. Procedure Aortic Valve
The aortic 31915 - A valve is complete trileaflet. two-dimensional There is no transthoracic aortic echocardiogram stenosis. No was aortic
regurgitation. performed. The Mitral study was Valve technically Structurally difficult. normal mitral valve. There is

no mitral valve Left Ventricle stenosis. No
significant The left mitral ventricle is regurgitation. normal in size. Tricuspid There is normal Valve left Structurally ventricular normal wall tricuspid
valve. There is thickness. Left no tricuspid ventricular stenosis. No systolic tricuspid function is regurgitation. normal. Left Pulmonic ventricular Valve The
pulmonic valve ejection is not well fraction is visualized. 65%. The left There is no ventricular pulmonic valve wall motion is stenosis. No normal. Grade significant
pulmonic I diastolic regurgitation. dysfunction, Aorta The consistent with aortic root is abnormal LV at the upper relaxation. limits of normal in size.

The visualized Right area of aortic Ventricle arch is normal
in size. The right Pulmonary ventricle is Artery There normal in size. was There is normal insufficient right tricuspid ventricular regurgitation
detected to wall calculate thickness. The pulmonary right artery systolic ventricular pressure. systolic Venous The function is inferior vena normal. cava is normal

in size. Left Atrium Pericardium
There is no Indexed left obvious atrial volume pericardial is normal. LA effusion. ESV Index (BP) MMode/2D - 12.3 ml/m2. Measurements & Calculations

IVSd: 0.92 cm Right Atrium
LVIDd: 4.6 cm Normal right LV atrial size. mass(C)d: LVIDs: 3.0 cm

Aortic Valve 151.7 grams
LVPWd: 0.99 cm The aortic LV valve is mass(C)dI: trileaflet. 77.9 grams/m2 There is no aortic stenosis. No aortic
_ Ao root regurgitation. diam: 3.7 cm Ao arch

diam: 3.1 cm Mitral Valve LVOT diam:
2.4 cm LA Structurally dimension: 3.1 normal mitral cm valve. There is no mitral valve stenosis. No
significant _ Left mitral atrial volume regurgitation. (2c): IVC Diameter: 1.9

cm RA Tricuspid Valve area (4c): 20.1 ml
Structurally normal 10.3 cm2 tricuspid Left atrial valve. There is volume (4c): no tricuspid 28.5 ml stenosis. No
tricuspid regurgitation. _ Left

atrial volume Pulmonic index Left Valve atrial volume
The index (2c): pulmonic valve 10.3 ml/m2 is not well (4c): 14.6 visualized. ml/m2 There is no Doppler pulmonic valve Measurements &
Calculations stenosis. MV E max tania: No significant 49.1 cm/sec MV pulmonic dec time: 0.30 regurgitation. sec Lat E' tania: 10.3

cm/sec MV A Aorta max tania: 51.4
The cm/sec aortic root is at the upper limits of normal in size. The visualized _ Med E' tania:
7.7 cm/sec area of E/E' Lateral: aortic arch is 4.7 AV v normal in size. max: 86.4 cm/sec E/E'

Medial: 6.3 Pulmonary AV max PG: Artery 3.0 mmHg
There was insufficient tricuspid regurgitation _ LVOT max detected to P.4 mmHg calculate PA max PG:
2.7 mmHg RV pulmonary S tania: 11.2 artery systolic cm/sec LVOT v pressure. max: 91.7

cm/sec Venous
The inferior vena cava is normal in size. _ E/E' Average: 5.5

Pericardium
There is no obvious pericardial effusion. _ Reading

Physician: Devang/Ladonna Albert Measurements & 11/24/2019 Calculations 01:21 PM
IVSd: 0.92 cm LVIDd: 4.6 cm LV mass(C)d:
LVIDs: 3.0 cm 151.7 grams
LVPWd: 0.99 cm LV mass(C)dI:
77.9 grams/m2
_

Ao root diam: 3.7 cm Ao arch diam: 3.1 cm LVOT diam: 2.4 cm
LA dimension: 3.1 cm
_

Left atrial volume (2c): IVC Diameter: 1.9 cm RA area (4c):
20.1 ml 10.3 cm2
Left atrial volume (4c):
28.5 ml
_

Left atrial volume index Left atrial volume index
(2c): 10.3 ml/m2 (4c): 14.6 ml/m2

Doppler Measurements & Calculations
MV E max tania: 49.1 cm/sec MV dec time: 0.30 sec Lat E' tania: 10.3 cm/sec
MV A max tania: 51.4 cm/sec

__
Med E' tania: 7.7 cm/sec E/E' Lateral: 4.7 AV v max: 86.4 cm/sec
E/E' Medial: 6.3 AV max P.0 mmHg

_
LVOT max P.4 mmHg PA max P.7 mmHg RV S tania: 11.2 cm/sec
LVOT v max: 91.7 cm/sec
__

E/E' Average: 5.5

_

Reading Physician:
Leonardo Albert MD 11/24/2019 01:21 PM

</td> ID Date Data Source [id number] 11/23/2019 12:00:00 AM EDT [facility] [id number] Corporation Name Value Range Interpretation Description Data Sup porting Code Source(s) Document(s ) Neurophysiol Neurophysiol <td> 11/23/2019 [facility] mery ordonez </td><td> [facility] Laboratory NAME: ARELY Neurophysiology Health [facility] elan CALDERA YAZUO MR#: </td><td>
<b [id number] r/>

<br ADMIT DATE: /> 11/21/2019 Neurophysiology SERVICE DATE:

11/22/2019 NAME: ELÍAS MCGEE DATE:
MR#: BILLING [id number] NUMBER:
[id number] ADMIT DATE: DATE OF 11/21/2019 SERVICE:
11/22/2019-0 SERVICE DATE: 11/23/2019 11/22/2019 EEG LOG
NUMBER: DISCHARGE DATE: .
LOCATION: BILLING [address] [place] [address]. NUMBER: AGE: [id number] 59.

DATE OF DATE OF : SERVICE: 1960 11/22/2019-11/22 REFERRING PHYSICIAN:

Dr. Jackson EEG LOG NUMBER: [place]. . HISTORY AND

CONDITION OF LOCATION: 6 THE [facility]. RECORDING:

This is an AGE: 59. 18-channel computerized

bedside DATE OF : continuous 1960 video EEG

recording on REFERRING a PHYSICIAN: 59-year-old Modesta Zelaya. man with recent

seizure-like HISTORY AND activity and CONDITION OF THE unresponsive RECORDING: This ness. is an 18-channel INDICATIONS
FOR computerized MONITORING: bedside 1. To continuous video capture EEG recording on patient's a 59-year-old habitual man clinical
with event and to recent establish seizure-like electroclini activity and kasandra unresponsiveness correlation. . 2. To

document INDICATIONS FOR ictal or MONITORING: interictal
epileptiform 1. To capture abnormalitie patient's s. 3. To habitual rule out clinical event subclinical and to establish seizures.
START TIME: 10:50 electroclinical a.m. on correlation. 11/22/2019.
END 2. To document TIME: 11:00 ictal or a.m. on interictal 11/23/2019. epileptiform abnormalities. BACKGROUND
ACTIVITY: 3. To rule During out subclinical wakefulness, seizures. background

shows well START TIME: sustained 10:50 a.m. on low to 11/22/2019. medium

amplitude END TIME: 8-10 Hz 11:00 a.m. on activity in 11/23/2019. the

posterior BACKGROUND head region. ACTIVITY: This shows During normal wakefulness, reactivity background shows to eye well sustained opening and
eye closure. low to medium Occasional amplitude 8-10 low voltage Hz activity in faster the posterior frequencies head region. are noted in
the This shows frontocentra normal l region. reactivity to SLEEP: eye opening and Intermittent eye closure. stage II Occasional sleep
characterize low voltage d by faster symmetric frequencies are vertex noted in the waves and frontocentral sleep region. spindles

noted. SLEEP: INTERICTAL Intermittent EPILEPTIFORM stage II sleep ABNORMALITIE characterized by S: None. symmetric vertex ICTAL
EPILEPTIFORM waves and ABNORMALITIE sleep spindles S: None. noted. CLINICAL

EVENTS: INTERICTAL None. EPILEPTIFORM EEG DURING ABNORMALITIES: CLINICAL None. EVENTS: Not

applicable. ICTAL EPILEPTIFORM IMPRESSION ABNORMALITIES: AND CLINICAL None. CORRELATION:

This is a CLINICAL EVENTS: normal None. bedside

video EEG EEG DURING recording. CLINICAL EVENTS: The patient Not applicable. remained asymptomatic

during this IMPRESSION AND recording. CLINICAL No CORRELATION: epileptiform This is a normal abnormalitie bedside video s, clinical EEG or
electrograph recording. The ic seizures patient remained noted asymptomatic during this during this recording. recording. No
DICT: OTTO castilloiform Fritz DENNIS abnormalities, clinical or 07 27 PM electrographic DT: seizures noted 0
23:39:21/HN during this Job#: recording. [id number]

< ========= br/>
END OF DICT: OTTO DOCUMENT / Fritz DENNIS CHANGE LOG
FOLLOWS 05 21 PM =====
Elec. Signed By JEANNIE, 23:39:21/HN OTTO
#[id number] on 11/28/2019 18:04 ET

===== END OF DOCUMENT / CHANGE LOG FOLLOWS =

Elec. Signed By
JEANNIE OTTO #[id number]
on 11/28/2019 18:04 ET

</td> ID Date Data Source [id number] 11/21/2019 04:19:00 PM EDT [facility] [id number] Corporation Name Value Range Interpretation Description Data Sup porting Code Source(s) Document(s ) C Spine (PACSIMAGE <td> 11/26/2019 [place] Without 11:58</td><td> [facility] Contrast- ) Final Spine Without Health Care MRI Result Contrast-[facility] Corporation Name: MCGEE, </td><td><dex WHITMANAN MRN: [id number] Sex: M styleCode="Italic : s">(PACSIMAGE 1960 Location: )</paragraph><br/ Admitting >
Final Physician: Cherie ZELAYA

Requesting Name: ARELY Physician: WERNER PETERS
MRN: Exam: MRI C [id number] Sex: M SPINE C-
11/26/2019 : 1960 13:32 Location: M ADDENDUM
Please Admitting note that Physician: MODESTA foreman the RICHIE edema within
the C5 and Requesting C6 vertebral Physician: DYLAN PETERS suggested to

be Exam: MRI C SPINE degenerative, C- 11/26/2019 other 13:32 etiologies

<b such as r/>
infection or ADDENDUM metastatic

disease are Please note that less likely although the but not edema within the entirely C5 excluded, and
and C6 correlation vertebral bodies with clinical is suggested to history is be degenerative, recommended. other Report
CLINICAL etiologies such HISTORY: as infection or Seizure metastatic COMPARISON: disease are less There are no likely prior studies
but not for entirely comparison. excluded, and TECHNIQUE: correlation with Multiplanar, clinical history multisequence
MR imaging of is recommended. the cervical spine without

the use of Report intravenous
contrast. CLINICAL HISTORY: FINDINGS: Seizure BONE AND BONE

MARROW: There COMPARISON: There is no evidence are no prior of acute studies for fracture. comparison. Degenerative

edema is seen TECHNIQUE: within the C5 Multiplanar, and C6 multisequence MR vertebral imaging of the bodies.. cervical ALIGNMENT: The
spine craniocervical without the use junction and of intravenous atlantoaxial contrast. intervals

are FINDINGS: maintained.

The spinal BONE AND BONE alignment is MARROW: There is maintained. no evidence of There is 2 acute fracture. mm of
anterolisthesi Degenerative s of C7 on T1. edema is seen within the C5 and INTERVERTEBRAL C6 vertebral DISCS: There bodies.. is multilevel
disc height ALIGNMENT: The loss, most craniocervical prominently at junction and C5-C6 and atlantoaxial C6-C7. intervals SPINAL CORD
are AND EPIDURAL: maintained. The The spinal spinal alignment cord is normal is maintained. in size and There is signal
2 mm intensity. of EXTRASPINAL: anterolisthesis There is no of C7 on T1. prevertebral
soft tissue INTERVERTEBRAL swelling. The DISCS: There is paraspinal multilevel disc soft tissues height loss, most are
unremarkable. prominently at The C5-C6 and C6-C7. extraspinal
soft tissues SPINAL CORD AND are EPIDURAL: The unremarkable. spinal cord is LIGAMENTS: normal in size Anterior and longitudinal
signal ligament, intensity. posterior
longitudinal EXTRASPINAL: ligament, There is no flavum prevertebral soft ligamentum, tissue swelling. interspinous, The and
supraspinous paraspinal soft ligaments tissues are are probably unremarkable. The intact. extraspinal soft Evaluation of
the individual tissues are disc space unremarkable. levels:
C2-C3: There LIGAMENTS: is no Anterior significant longitudinal disk bulge or ligament, herniation. posterior There is longitudinal bilateral
uncovertebral ligament, flavum and facet ligamentum, hypertrophy interspinous, and with resulting supraspinous mild right ligaments greater than
are left neural probably intact. foraminal stenosis.

There is no Evaluation of the central canal individual disc stenosis. space levels: C3-C4: There

is a small C2-C3: There central disc is no significant protrusion and disk bulge or posterior herniation. There ligamentous
thickening. is bilateral There is uncovertebral and bilateral facet hypertrophy uncovertebral with resulting and facet
hypertrophy mild right with resulting greater than left moderate right neural foraminal and mild left stenosis. There neural
foraminal is no central stenosis. canal stenosis. There is mild central canal

stenosis.. C3-C4: There is a C4-C5: There small central is a small disc protrusion central disc and posterior protrusion and
posterior ligamentous ligamentous thickening. There thickening. is bilateral There is uncovertebral and bilateral
uncovertebral facet and facet hypertrophy with hypertrophy resulting with resulting moderate right moderate to and mild left severe right
and mild neural foraminal left neural stenosis. There foraminal is mild central stenosis. canal stenosis.. There is mild central canal

stenosis. C4-C5: There is a C5-C6: There small central is disc disc protrusion osteophyte and posterior complex and
posterior ligamentous ligamentous thickening. There thickening. is bilateral There is uncovertebral and bilateral
uncovertebral facet and facet hypertrophy with hypertrophy resulting with resulting moderate to severe right severe right and and moderate
to severe left mild left neural neural foraminal frontal stenosis. There stenosis. is mild central There is canal impression on
the thecal sac stenosis. with

moderate C5-C6: There is central canal disc osteophyte stenosis. complex and C6-C7: There posterior is a disc ligamentous bulge and
posterior thickening. There ligamentous is bilateral thickening. uncovertebral and There is facet hypertrophy bilateral
uncovertebral with resulting and facet severe right and hypertrophy moderate to with resulting severe left moderate to neural severe right
frontal and moderate stenosis. There left neural is impression on foraminal the thecal sac stenosis. with There is mild
to moderate moderate central central canal canal stenosis. stenosis. C7-T1: There

is a disc C6-C7: There is a bulge. There disc bulge and is bilateral posterior uncovertebral ligamentous and facet thickening. hypertrophy
with resulting There is mild bilateral bilateral neural uncovertebral and foraminal facet hypertrophy stenosis. with resulting There is mild
central canal moderate to stenosis. severe right and IMPRESSION: moderate left 1. neural foraminal Multilevel stenosis. degenerative
changes, with There is mild to up to moderate moderate central central canal stenosis. canal stenosis at C5-C6.

There is up to C7-T1: There is a severe right disc bulge. There and moderate is bilateral to severe left uncovertebral neural
foraminal and facet stenosis at hypertrophy with C5-C6. resulting mild bilateral neural Resident foraminal Radiologist:
Attending stenosis. There Radiologist: is mild central Rakesh canal stenosis. Bess EAGLE Finalizing

Radiologist: IMPRESSION: Rakesh

Bess EAGLE 1. Multilevel Transcribed degenerative Date: changes, with up 11/26/2019 to moderate 13:59 central Finalized
canal Date: stenosis at 11/26/2019 C5-C6. There is 14:07 up to severe right and moderate
to severe left neural foraminal stenosis at C5-C6.

<b r/>

<br/ >
Resident Radiologist:
Attending Radiologist: Rakesh Kellogg MD
Finalizing Radiologist: Rakesh Kellogg MD
Transcribed Date: 11/26/2019 13:59
Finalized Date: 11/26/2019 14:07

</td> Brain (PACSIMAGE <td> 11/21/2019 [place] With&With 16:19</td><td> County out ) Final Brain [facility] Contrast- Result With&Without [facility] MRI Name: ARELY, Contrast-MRI WERNER MRN: </td><td><paragra [id number] Sex: M ph : styleCode="Italic 1960 s">(PACSIMAGE Location: M Admitting )</paragraph><br/ Physician: >
Final OTTO JEANNIE Result Requesting

Physician: Name: JUD MCGEE WERNER Exam: MRI
MRN: BRAIN C+/C- [id number] Sex: M 11/21/2019
20:24 : 1960 CLINICAL Location: M INDICATION:
Seizure Admitting protocol Physician: OTTO TECHNIQUE: JEANNIE Multiplanar
multisequentia Requesting l MR imaging Physician: JUD of the brain ALI was obtained

according to a Exam: MRI BRAIN seizure C+/C- 11/21/2019 protocol 20:24 before and

after the CLINICAL administration INDICATION: of contrast. Seizure protocol Contrast dose: 7 cc gadavistt

TECHNIQUE: COMPARISON: Multiplanar MRI brain multisequential 08/28/2015 MR imaging of the FINDINGS: brain There is
was diffuse, mild obtained cerebral according to a atrophy with seizure protocol widening of before and after the
ventricles and the sulci. There administration of is no contrast. intracranial Contrast dose: 7 mass or mass cc gadavistt effect.

Patchy T2 COMPARISON: hyperintensity MRI brain is present in 08/28/2015 the cerebral

white matter FINDINGS: There is no

abnormally There is diffuse, restricted mild cerebral diffusion to atrophy with suggest acute widening of the infarction.
There is no ventricles and evidence of sulci. acute
There intraparenchym is no al or intracranial mass subarachnoid or mass effect. hemorrhage.
There is no Patchy T2 extra-axial hyperintensity is collection. present in the There is no cerebral white abnormal matter susceptibility
There artifact to is no abnormally suggest restricted calcification diffusion to or chronic suggest acute hemorrhage.
Postcontrast infarction. images are
degraded by There is no motion evidence of acute artifact. No intraparenchymal gross or subarachnoid evidence for
abnormal hemorrhage. intracranial There is no enhancement is extra-axial seen. collection. There is mild
mucosal There is no thickening of abnormal the paranasal susceptibility sinuses. artifact to IMPRESSION: suggest Patchy T2 calcification hyperintensity
in the or chronic cerebral white hemorrhage. matter,

compatible Postcontrast chronic images are microangiopath degraded by ic change. No motion artifact. significant No gross interval
change.. evidence for Resident abnormal Radiologist: intracranial Attending enhancement is Radiologist: seen. Prince Lofton

There is mild Finalizing mucosal Radiologist: thickening of the Prince Lofton paranasal MD sinuses. Transcribed

Date: IMPRESSION: 11/21/2019

22:39 Patchy T2 Finalized hyperintensity in Date: the cerebral 11/21/2019 white matter, 22:44 compatible
chronic microangiopathic change. No significant interval change..

<b r/> Resident Radiologist:
Attending Radiologist: Prince Lofton MD
Finalizing Radiologist: Prince Lofton MD
Transcribed Date: 11/21/2019 22:39
Finalized Date: 11/21/2019 22:44

</td> Soft (PACSIMAGE <td> 11/21/2019 [place] Tissue 14:01</td><td> [facility] Mass Body ) Final Soft Tissue [facility] re US Result Body [employer] Name: </td><td><paragra [place], ph STROKE MRN: styleCode="Italic [id number] Sex: F s">(PACSIMAGE : 04/12/1970 )</paragraph><br/ Location: F >
Final Admitting Result Physician:

OTTO DENNIS Name: [place], Requesting STROKE Physician:
MRN: HIRAM ART [id number] Sex: F Exam: US SOFT
TISSUE MASS : 04/12/1970 BODY Location: F 11/21/2019
14:33 Admitting CLINICAL Physician: OTTO INDICATION: JEANNIE Left groin
swelling. Requesting TECHNIQUE: A Physician: HIRAM ART oriented

ultrasound of Exam: US SOFT the bilateral TISSUE MASS BODY groins/region 11/21/2019 14:33 of interest was performed.

CLINICAL COMPARISON: INDICATION: Left None. groin swelling. FINDINGS: Per the

technologist's TECHNIQUE: A notes, there problem oriented is visible ultrasound of the swelling in bilateral the right groins/region groin with
associated of interest was drainage but performed. no visible

abnormality COMPARISON: on the left. None. Scanning of

the left groin FINDINGS: revealed no

abnormality, Per the but no images technologist's were saved. notes, there is In the visible swelling right groin in the there is a
right heterogenous groin with collection associated measuring drainage but no 2.6 x 1.3 x visible 2.4 cm with abnormality peripheral
on vascularity, the left. most

consistent Scanning of the with an left groin abscess. There revealed no is diffuse abnormality, but surrounding no images soft tissue
were swelling and saved. edema.

In IMPRESSION: the right groin 1. Right there is a groin heterogenous collection collection measuring 2.6 measuring x 1.2 x 2.4 cm
2.6 with x 1.3 x 2.4 cm peripheral with peripheral vascularity, vascularity, most most consistent consistent
with an with an abscess. abscess. 2. There is diffuse No visible surrounding soft left groin tissue swelling swelling. No
ultrasound and edema. abnormality

was noted by IMPRESSION: the

technologist, 1. Right but no images groin collection of the left measuring 2.6 x groin were 1.2 x 2.4 cm with saved. peripheral Resident
Radiologist: vascularity, most Pooja Rader MD consistent with Resident an abscess. Radiologist
2. Attending No visible left Radiologist: groin swelling. William Brady ultrasound Viky EAGLE abnormality Finalizing
Radiologist: was noted by the William technologist, but Viky EAGLE no images of the Transcribed left groin Date:
11/21/2019 were saved. 15:48 Finalized

<b Date: r/> Resident 11/21/2019 Radiologist: 16:54 Pooja Rader MD Resident Radiologist
Attending Radiologist: William Salmon MD
Finalizing Radiologist: William Salmon MD
Transcribed Date: 11/21/2019 15:48
Finalized Date: 11/21/2019 16:54

</td> LS Spine (PACSIMAGE <td> 11/29/2019 [place] Without 14:00</td><td> LS County Contrast- ) Final Spine Without Health Care MRI Result Contrast-[facility] Name: ARELY, </td><td><dex CALDERA Sex: M styleCode="Italic : s">(PACSIMAGE 1960 Location: M )</paragraph><br/ Admitting >
Final Physician: Cherie ZELAYA

Requesting Name: ARELY Physician: WERNER DC
MRN: HYACINTH [id number] Sex: M Exam: MRI LS
SPINE C- : 1960 11/29/2019 Location: M 14:38
MRI T SPINE Admitting C-, MRI LS Physician: MODESTA ZELAYA CLINICAL
HISTORY: Requesting Right lower Physician: OSHER extremity RECHESTER weakness and

pain. Exam: MRI LS COMPARISON: SPINE C- Nondiagnostic 11/29/2019 14:38 MRI thoracic and lumbar

spine MRI T SPINE C-, 11/27/2019. MRI LS SPINE C- TECHNIQUE: Multiecho,

multiplanar, CLINICAL HISTORY: MR images are
obtained of Right lower the thoracic extremity and lumbar weakness and spine without pain. the use of

intravenous COMPARISON: contrast.
Examination Nondiagnostic MRI was performed thoracic and under general lumbar spine anesthesia. 11/27/2019. FINDINGS:

MRI THORACIC TECHNIQUE: SPINE:
Alignment and Multiecho, curvature of multiplanar, MR the thoracic images are spine is obtained of the unremarkable. thoracic There is
and diffuse lumbar spine osteopenia. without the use There are no of intravenous acute or contrast. chronic Examination vertebral
body was performed compression under general fractures. anesthesia. There are mild

to moderate FINDINGS: multilevel

degenerative MRI THORACIC changes within SPINE: the visualized
thoracic spine Alignment and including curvature of the near diffuse thoracic spine is disc unremarkable. desiccation,
variable There is diffuse intervertebral osteopenia. There disc height are no acute or loss, and chronic vertebral degenerative
Modic type I body endplate bone compression marrow edema fractures. There along the are mild to ventral moderate T10-T11 and multilevel T11-T12
endplates. degenerative Moderate changes within intervertebral the visualized disc height thoracic spine loss from including T3-T4 through
near T5-T6 and diffuse disc T8-T9 through desiccation, T10-T11. variable There are no intervertebral thoracic cord disc height signal
abnormalities. loss, and There is no degenerative thoracic cord Modic type I compression. endplate bone Conus marrow edema medullaris
lies at the along the ventral T12-L1 T10-T11 and level. At T11-T12 T5-T6, small endplates. right Moderate paracentral intervertebral disc
protrusion. At disc height loss T11-T12, from T3-T4 minimal through T5-T6 and symmetric disc T8-T9 through bulge. At T10-T11. T12-L1,
There broad-based are no thoracic left cord signal paracentral abnormalities. disc There is no protrusion.
There is no thoracic cord high-grade compression. spinal canal Conus medullaris stenosis. lies at the There is T12-L1 multilevel
level. mild to moderate facet

At joint T5-T6, small arthropathy right paracentral with reactive disc protrusion. bone marrow At T11-T12, edema, as
detailed minimal symmetric below, and disc bulge. At regional T12-L1, facet broad-based left effusions. paracentral There is left
greater than disc protrusion. right neural There is no foraminal high-grade spinal stenosis at canal stenosis. T9-T10
secondary to There is facet multilevel mild arthropathy. to moderate facet There is joint arthropathy additional
multilevel with reactive mild to bone marrow moderate edema, as neural detailed below, foraminal and regional narrowing
secondary to facet effusions. facet There is left arthropathy. greater than Again right neural demonstrated foraminal is T2/STIR
hyperintensity stenosis at involving the T9-T10 secondary T9 spinous to facet process with arthropathy. mild T1 There is hypointense additional signal. This
is multilevel mild incompletely to moderate characterized neural foraminal on this narrowing examination. secondary Differential
to considerations facet include a arthropathy. hemangioma.

Pathologic Again lesion in the demonstrated is setting of T2/STIR known hyperintensity malignancy involving the T9 cannot be
excluded. CT spinous process thoracic spine with mild T1 imaging can hypointense be obtained signal. This is for further incompletely assessment as
clinically characterized on warranted. this examination. There is mild Differential T2/STIR considerations hyperintensity
involving the include a right T12 hemangioma. costovertebral Pathologic lesion joint possibly in the setting of partially known degenerative.
There is malignancy cannot partially be excluded. CT visualized thoracic spine T2/STIR imaging can hyperintensity
be involving the obtained for right T1 and further T2 transverse assessment as processes. clinically Differential warranted. considerations

include There is mild reactive T2/STIR changes in the hyperintensity setting of involving the regional right T12 degenerative
changes, costovertebral bone joint possibly contusion, or partially fractures in degenerative. the setting of There is recent trauma.
CT partially evaluation can visualized be obtained as T2/STIR clinically hyperintensity warranted. involving the There is right multilevel
T1 and T2/STIR T2 transverse hyperintensity processes. T1 hypointense Differential signal considerations involving include the facets
likely reactive changes reactive in in the setting of the setting of regional regional facet degenerative arthropathy. changes, This is most
bone significant on contusion, or the left at fractures in the T9-T10 and setting of recent T4-T5 and on trauma. the right at
CT T1-T2. There evaluation can be is no obtained as prevertebral clinically edema. warranted. There MRI
LUMBOSACRAL is multilevel SPINE: There T2/STIR is hyperintensity T1 straightening hypointense of normal signal involving lumbar
lordosis. the facets There is no likely reactive spondylolisthe in the setting of sis. There is regional facet diffuse arthropathy. osteopenia.
Severe This is most degenerative significant on changes at the left at L4-L5 with T9-T10 and T4-T5 near complete and intervertebral
on the disc height right at T1-T2. loss, mild There is no ventral prevertebral hypertrophic edema. spurring, and

moderate to MRI LUMBOSACRAL moderately SPINE: severe
There degenerative is straightening Modic type I of normal lumbar bone marrow lordosis. There endplate is no edema.
Moderately spondylolisthesis severe . There is degenerative diffuse changes at osteopenia. L5-S1 Severe eccentric to degenerative the right with
disc changes at L4-L5 desiccation, with near moderate complete intervertebral intervertebral disc height disc height loss, and
Modic type I loss, mild bone marrow ventral endplate edema hypertrophic on the spurring, and right. Mild moderate to disc moderately desiccation
with relative severe preservation degenerative of Modic type I bone intervertebral marrow endplate disc height edema. from L1 L2-3
L3-L4. Conus Moderately severe medullaris degenerative terminates at changes at L5-S1 the T12-L1 eccentric to level. Thin
linear T1 the right with hyperintense disc desiccation, lesion closely moderate associated intervertebral with the filum disc terminale
height likely loss, and Modic reflecting a type I bone fibrolipoma. marrow endplate At edema on the L1-L2, no
spinal canal right. Mild disc or neural desiccation with foraminal relative stenosis. preservation of At L2-L3, intervertebral minimal
symmetric disc disc height from bulge without L1 L2-3 L3-L4. spinal canal Conus medullaris or neural terminates at foraminal
stenosis. the T12-L1 level. At L3-L4, Thin linear T1 broad-based hyperintense right lesion closely paracentral
disc associated with protrusion and the filum mild facet terminale likely hypertrophy. reflecting a No spinal fibrolipoma. canal or neural

foraminal At L1-L2, no stenosis.. spinal canal or At L4-L5, neural foraminal severe stenosis. degenerative

changes, as At L2-L3, minimal detailed symmetric disc above. Mild bulge without symmetric disc spinal canal or bulge and
facet neural foraminal hypertrophy stenosis. resulting in

mild At L3-L4, degenerative broad-based right spinal canal paracentral disc stenosis. protrusion and Moderate right mild and moderately
facet severe left hypertrophy. No neural spinal canal or foraminal neural foraminal narrowing with stenosis.. partial

flattening At L4-L5, severe and/or degenerative impingement of changes, as the exiting detailed above. left L4 nerve Mild root. At
L5-S1, symmetric disc moderately bulge and facet severe hypertrophy degenerative resulting in mild changes, as
detailed degenerative above. Mild spinal canal posterior disc stenosis. osteophyte Moderate right complex and moderately eccentric to
the right severe left with a right neural foraminal foraminal disc narrowing with protrusion and partial facet flattening hypertrophy.
No spinal and/or canal impingement of stenosis. the exiting left Severe right L4 nerve root. and moderately severe left

At neural L5-S1, moderately foraminal severe stenosis with degenerative impingement of changes, as the exiting detailed right L5 nerve
root. above. Mild Correlate for posterior disc right L5 osteophyte radiculopathy. complex eccentric to the IMPRESSION:
right MRI thoracic with a right spine: 1. foraminal disc Multilevel protrusion and degenerative facet changes hypertrophy. including
facet No spinal canal arthropathy, stenosis. Severe as described right and in detail moderately severe above. No
high-grade left neural spinal canal foraminal stenosis or stenosis with thoracic cord impingement of compression. the exiting Left greater
than right right L5 nerve neural root. Correlate foraminal for right L5 stenosis at radiculopathy. T9-T10. 2. Multilevel

facet IMPRESSION: arthropathy

with probable MRI thoracic reactive bone spine: marrow
1. edema, as Multilevel described in degenerative detail above. changes including 3. Signal facet abnormality arthropathy, within the T9
spinous as described in process detail above. No possibly high-grade spinal reflecting a canal stenosis lipid poor
hemangioma in or thoracic cord the absence of compression. Left known greater than malignancy. right neural CT thoracic
spine or foraminal nuclear stenosis at medicine bone T9-T10. scan

correlation is 2. Multilevel suggested as facet arthropathy clinically with probable warranted. reactive bone 4. Partially marrow visualized
edema, edema within as described in the right T1 detail above. and T2

transverse 3. Signal processes abnormality possibly within the T9 reflecting spinous process reactive possibly degenerative
changes, reflecting a bone lipid poor contusion, or hemangioma in the fracture in absence of known the setting of malignancy. recent
CT trauma.. thoracic spine or MRI lumbar nuclear medicine spine: 1. bone scan L4-L5 and correlation is L5-S1
degenerative suggested as changes and clinically facet warranted. arthropathy,

as described 4. Partially in detail visualized edema above. Mild within the right degenerative T1 and T2 spinal canal transverse stenosis at
L4-L5. 2. processes Multilevel possibly neural reflecting foraminal reactive stenosis most degenerative significant on changes, the right at
bone L5-S1 and on contusion, or the left at fracture in the L4-L5 with setting of recent impingement of trauma.. the exiting

right L5 and MRI lumbar left L4 nerve spine: roots,
1. respectively. L4-L5 and L5-S1 3. degenerative Incidental changes and facet note of a arthropathy, filum
terminale as described in fibrolipoma. detail above. Conus Mild degenerative medullaris spinal canal lies at the
T12-L1 level. stenosis at L4-L5. Resident

2. Radiologist: Multilevel neural Attending foraminal Radiologist: stenosis most Zoë Cedeno MD significant on Finalizing the Radiologist:
right Zoë Cedeno MD at L5-S1 and on Transcribed the left at L4-L5 Date: with impingement 11/29/2019 of the 14:33
exiting Finalized right L5 and left Date: L4 nerve roots, 11/29/2019 respectively. 14:50

3. 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
lies at the T12-L1 level.

<b r/> Resident Radiologist:
Attending Radiologist: Zoë Cedeno MD
Finalizing Radiologist: Zoë Cedeno MD
Transcribed Date: 11/29/2019 14:33
Finalized Date: 11/29/2019 14:50

</td> Thoracic (PACSIMAGE <td> 11/29/2019 [place] Spine 14:00</td><td> [place] W/Out ) Final Thoracic Spine [facility] Care Contrst-M Result W/Out Contrst-[facility] [place] Name: MCGEE, </td><td><paragr WERNER MRN: [id number] Sex: M styleCode="Italic : s">(PACSIMAGE 1960 Location: M )</paragraph><br/ Admitting >
Final Physician: Result MODESTA ZELAYA

Requesting Name: ARELY, Physician: WERNER DC
MRN: RECHESTER [id number] Sex: M Exam: MRI T
SPINE C- : 1960 11/29/2019 Location: M 14:39
MRI T SPINE Admitting C-, MRI LS Physician: MODESTA SPINE Vaibhav ZELAYA CLINICAL
HISTORY: Requesting Right lower Physician: VANDA extremity RECHESTER weakness and

pain. Exam: MRI T SPINE COMPARISON: C- 11/29/2019 Nondiagnostic 14:39 MRI thoracic

and lumbar MRI T SPINE C-, spine MRI LS SPINE C- 11/27/2019. TECHNIQUE:

Multiecho, CLINICAL HISTORY: multiplanar,
MR images are Right lower obtained of extremity the thoracic weakness and and lumbar pain. spine without

the use of COMPARISON: intravenous
contrast. Nondiagnostic MRI Examination thoracic and was performed lumbar spine under general 11/27/2019. anesthesia.

FINDINGS: TECHNIQUE: MRI THORACIC
SPINE: Multiecho, Alignment and multiplanar, MR curvature of images are the thoracic obtained of the spine is thoracic unremarkable.
and There is lumbar spine diffuse without the use osteopenia. of intravenous There are no contrast. acute or Examination chronic
vertebral was performed body under general compression anesthesia. fractures.

There are mild FINDINGS: to moderate

multilevel MRI THORACIC degenerative SPINE: changes within
the visualized Alignment and thoracic spine curvature of the including thoracic spine is near diffuse unremarkable. disc
desiccation, There is diffuse variable osteopenia. There intervertebral are no acute or disc height chronic vertebral loss, and
degenerative body Modic type I compression endplate bone fractures. There marrow edema are mild to along the moderate ventral multilevel T10-T11 and
T11-T12 degenerative endplates. changes within Moderate the visualized intervertebral thoracic spine disc height including loss from
near T3-T4 through diffuse disc T5-T6 and desiccation, T8-T9 through variable T10-T11. intervertebral There are no disc height thoracic cord
signal loss, and abnormalities. degenerative There is no Modic type I thoracic cord endplate bone compression. marrow edema Conus
medullaris along the ventral lies at the T10-T11 and T12-L1 T11-T12 level. At endplates. T5-T6, small Moderate right intervertebral paracentral
disc disc height loss protrusion. At from T3-T4 T11-T12, through T5-T6 and minimal T8-T9 through symmetric disc T10-T11. bulge. At
There T12-L1, are no thoracic broad-based cord signal left abnormalities. paracentral There is no disc
protrusion. thoracic cord There is no compression. high-grade Conus medullaris spinal canal lies at the stenosis. T12-L1 There is
level. multilevel mild to

At moderate facet T5-T6, small joint right paracentral arthropathy disc protrusion. with reactive At T11-T12, bone marrow
edema, as minimal symmetric detailed disc bulge. At below, and T12-L1, regional broad-based left facet paracentral effusions.
There is left disc protrusion. greater than There is no right neural high-grade spinal foraminal canal stenosis. stenosis at
T9-T10 There is secondary to multilevel mild facet to moderate facet arthropathy. joint arthropathy There is
additional with reactive multilevel bone marrow mild to edema, as moderate detailed below, neural and regional foraminal
narrowing facet effusions. secondary to There is left facet greater than arthropathy. right neural Again foraminal demonstrated
is T2/STIR stenosis at hyperintensity T9-T10 secondary involving the to facet T9 spinous arthropathy. process with There is mild T1 additional hypointense
signal. This multilevel mild is to moderate incompletely neural foraminal characterized narrowing on this secondary examination.
to Differential facet considerations arthropathy. include a

hemangioma. Again Pathologic demonstrated is lesion in the T2/STIR setting of hyperintensity known involving the T9 malignancy
cannot be spinous process excluded. CT with mild T1 thoracic spine hypointense imaging can signal. This is be obtained incompletely for further
assessment as characterized on clinically this examination. warranted. Differential There is mild considerations T2/STIR
hyperintensity include a involving the hemangioma. right T12 Pathologic lesion costovertebral in the setting of joint possibly known partially
degenerative. malignancy cannot There is be excluded. CT partially thoracic spine visualized imaging can T2/STIR
be hyperintensity obtained for involving the further right T1 and assessment as T2 transverse clinically processes. warranted. Differential

considerations There is mild include T2/STIR reactive hyperintensity changes in the involving the setting of right T12 regional
degenerative costovertebral changes, joint possibly bone partially contusion, or degenerative. fractures in There is the setting of
recent trauma. partially CT visualized evaluation can T2/STIR be obtained as hyperintensity clinically involving the warranted. right There is
T1 and multilevel T2 transverse T2/STIR processes. hyperintensity Differential T1 hypointense considerations signal include involving
the facets reactive changes likely in the setting of reactive in regional the setting of degenerative regional facet changes, arthropathy.
bone This is most contusion, or significant on fractures in the the left at setting of recent T9-T10 and trauma. T4-T5 and on
CT the right at evaluation can be T1-T2. There obtained as is no clinically prevertebral warranted. There edema.
MRI is multilevel LUMBOSACRAL T2/STIR SPINE: There hyperintensity T1 is hypointense straightening signal involving of normal
lumbar the facets lordosis. likely reactive There is no in the setting of spondylolisthe regional facet sis. There is arthropathy. diffuse
osteopenia. This is most Severe significant on degenerative the left at changes at T9-T10 and T4-T5 L4-L5 with and near complete
on the intervertebral right at T1-T2. disc height There is no loss, mild prevertebral ventral edema. hypertrophic

spurring, and MRI LUMBOSACRAL moderate to SPINE: moderately
There severe is straightening degenerative of normal lumbar Modic type I lordosis. There bone marrow is no endplate
edema. spondylolisthesis Moderately . There is severe diffuse degenerative osteopenia. changes at Severe L5-S1 degenerative eccentric to
the right with changes at L4-L5 disc with near desiccation, complete moderate intervertebral intervertebral disc height disc height
loss, and loss, mild Modic type I ventral bone marrow hypertrophic endplate edema spurring, and on the moderate to right. Mild moderately disc
desiccation severe with relative degenerative preservation Modic type I bone of marrow endplate intervertebral edema. disc height
from L1 L2-3 Moderately severe L3-L4. Conus degenerative medullaris changes at L5-S1 terminates at eccentric to the T12-L1
level. Thin the right with linear T1 disc desiccation, hyperintense moderate lesion closely intervertebral associated disc with the filum
height terminale loss, and Modic likely type I bone reflecting a marrow endplate fibrolipoma. edema on the At
L1-L2, no right. Mild disc spinal canal desiccation with or neural relative foraminal preservation of stenosis. intervertebral At L2-L3,
minimal disc height from symmetric disc L1 L2-3 L3-L4. bulge without Conus medullaris spinal canal terminates at or neural
foraminal the T12-L1 level. stenosis. Thin linear T1 At L3-L4, hyperintense broad-based lesion closely right
paracentral associated with disc the filum protrusion and terminale likely mild facet reflecting a hypertrophy. fibrolipoma. No spinal canal or

neural At L1-L2, no foraminal spinal canal or stenosis.. neural foraminal At L4-L5, stenosis. severe

degenerative At L2-L3, minimal changes, as symmetric disc detailed bulge without above. Mild spinal canal or symmetric disc
bulge and neural foraminal facet stenosis. hypertrophy

resulting in At L3-L4, mild broad-based right degenerative paracentral disc spinal canal protrusion and stenosis. mild Moderate right
facet and moderately hypertrophy. No severe left spinal canal or neural neural foraminal foraminal stenosis.. narrowing with

partial At L4-L5, severe flattening degenerative and/or changes, as impingement of detailed above. the exiting Mild left L4 nerve
root. At symmetric disc L5-S1, bulge and facet moderately hypertrophy severe resulting in mild degenerative
changes, as degenerative detailed spinal canal above. Mild stenosis. posterior disc Moderate right osteophyte and moderately complex
eccentric to severe left the right neural foraminal with a right narrowing with foraminal disc partial protrusion and flattening facet
hypertrophy. and/or No spinal impingement of canal the exiting left stenosis. L4 nerve root. Severe right and moderately

At severe left L5-S1, moderately neural severe foraminal degenerative stenosis with changes, as impingement of detailed the exiting
right L5 nerve above. Mild root. posterior disc Correlate for osteophyte right L5 complex eccentric radiculopathy. to the
right IMPRESSION: with a right MRI thoracic foraminal disc spine: 1. protrusion and Multilevel facet degenerative hypertrophy. changes
including No spinal canal facet stenosis. Severe arthropathy, right and as described moderately severe in detail
above. No left neural high-grade foraminal spinal canal stenosis with stenosis or impingement of thoracic cord the exiting compression.
Left greater right L5 nerve than right root. Correlate neural for right L5 foraminal radiculopathy. stenosis at T9-T10.

2. Multilevel IMPRESSION: facet

arthropathy MRI thoracic with probable spine: reactive bone
1. marrow Multilevel edema, as degenerative described in changes including detail above. facet 3. Signal arthropathy, abnormality
within the T9 as described in spinous detail above. No process high-grade spinal possibly canal stenosis reflecting a
lipid poor or thoracic cord hemangioma in compression. Left the absence of greater than known right neural malignancy.
CT thoracic foraminal spine or stenosis at nuclear T9-T10. medicine bone

scan 2. Multilevel correlation is facet arthropathy suggested as with probable clinically reactive bone warranted. marrow 4. Partially
edema, visualized as described in edema within detail above. the right T1

and T2 3. Signal transverse abnormality processes within the T9 possibly spinous process reflecting possibly reactive
degenerative reflecting a changes, lipid poor bone hemangioma in the contusion, or absence of known fracture in malignancy. the setting of
CT recent thoracic spine or trauma.. nuclear medicine MRI lumbar bone scan spine: 1. correlation is L4-L5 and
L5-S1 suggested as degenerative clinically changes and warranted. facet

arthropathy, 4. Partially as described visualized edema in detail within the right above. Mild T1 and T2 degenerative transverse spinal canal
stenosis at processes L4-L5. 2. possibly Multilevel reflecting neural reactive foraminal degenerative stenosis most changes, significant on
bone the right at contusion, or L5-S1 and on fracture in the the left at setting of recent L4-L5 with trauma.. impingement of

the exiting MRI lumbar right L5 and spine: left L4 nerve
1. roots, L4-L5 and L5-S1 respectively. degenerative 3. changes and facet Incidental arthropathy, note of a
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
lies at the stenosis at T12-L1 level. L4-L5.

2. Resident Multilevel neural Radiologist: foraminal Attending stenosis most Radiologist: significant on Zoë Cedeno MD the Finalizing
right Radiologist: at L5-S1 and on Zoë Cedeno MD the left at L4-L5 Transcribed with impingement Date: of the 11/29/2019
exiting 14:33 right L5 and left Finalized L4 nerve roots, Date: respectively. 11/29/2019

14:50 3. 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
lies at the T12-L1 level.

<b r/> Resident Radiologist:
Attending Radiologist: Zoë Cedeno MD
Finalizing Radiologist: Zoë Cedeno MD
Transcribed Date: 11/29/2019 14:33
Finalized Date: 11/29/2019 14:50

</td> ID Date Data Source [id number] 11/19/2019 12:10:00 PM EDT [facility] Name Value Range Interpretation Description Data Sup porting Code Source(s) Document(s ) SARS [facility] coronavirus 2 RNA This lab was ordered by [facility] and reported by [facility]. ID Date Data Source [id number] 01/29/2018 09:15:38 AM EST [facility] [facility] ([place] [id number] [facility]) Name Value Range Interpretation Description Data Source(s ) Supporting Code Document(s ) No Results No Results No Results NGOZI ([facility] Recorded For [facility]) ID Date Data Source [id number] 01/29/2018 09:02:31 AM EST [place] ([place] [id number] [facility]) Name Value Range Interpretation Description Data Source(s ) Supporting Code Document(s ) No Results No Results No Results NGOZI ([facility] Recorded For [facility]) Procedure Social History Code Duration Value Status Description Data Source(s ) Smoking 09/15/2019 Daily Smoker completed Daily Smoker [facility] 10:36:00 AM EDT Medical C enter Smoking 04/08/2019 Daily Smoker completed Daily Smoker [facility] 08:44:00 PM EST Medical [facility] enter Smoking 04/08/2019 Daily Smoker completed Daily Smoker [facility] 08:25:00 PM EST Medical C enter Smoking 04/03/2019 Daily Smoker completed Daily Smoker [facility] 07:55:00 AM EST Medical C enter Smoking 04/03/2019 Daily Smoker completed Daily Smoker [facility] 07:47:00 AM EST Medical C enter Smoking 02/28/2019 Daily Smoker completed Daily Smoker [facility] 12:28:00 AM EST Medical C enter Smoking 02/27/2019 Daily Smoker completed Daily Smoker [facility] 11:47:00 PM EST Medical C enter Smoking 02/27/2019 Daily Smoker completed Daily Smoker [facility] 11:44:00 PM EST Medical C enter Smoking 02/26/2019 Daily Smoker completed Daily Smoker [facility] 07:17:00 AM EST Medical C enter Smoking 02/26/2019 Daily Smoker completed Daily Smoker [facility] 06:49:00 AM EST Medical C enter Smoking 02/26/2019 Daily Smoker completed Daily Smoker [facility] 06:38:00 AM EST Medical C enter Smoking 06/08/2012 Never smoked completed Never smoked NGOZI ( [facility] 04:41:34 PM EDT tobacco tobacco (finding) Ve rnon (finding) [facility]) Smoking Smoker, current completed Smoker, current [facility] status unknown status unknown [facility] Smoking Unknown if ever completed Unknown if ever Sandra Oliver smoked smoked [facility] Assertion Tobacco user completed Tobacco user NGOZI ( [facility] (finding) (finding) [facility]) Assertion Finding completed Finding relating NGOZI ([facility] relating to to drug misuse [place] drug misuse behavior [facility] behavior (finding) [facility]) (finding) Assertion Finding of completed Finding of NGOZI (M[facility] t activity of activity of daily [place] daily living living (finding) [facility] (finding) [facility] [place]) Assertion Exercise completed Exercise history NGOZI ([facility] history finding finding (finding) Ve rnon (finding) [facility]) Assertion Finding completed Finding relating NGOZI ([facility] relating to to drug misuse [place] drug misuse behavior [facility] behavior (finding) [facility]) (finding) Vital Signs ID Date Data Source UNK Name Value Range Interpretation Code Description Data Source(s) Diastolic blood 68 {} Normal (applies to 68 {} [place] pressure non-numeric results) [facility] Systolic blood 121 {} Normal (applies to 121 {} [place] pressure non-numeric results) [facility] First Respiration 17.0000 {} Normal (applies to 17.0000 {} [place] rate Set non-numeric results) [facility] Heart rate 80.0000 {} Normal (applies to 80.0000 {} [place] non-numeric results) [facility] Body temperature 98.0000 {} Normal (applies to 98.0000 {} [place] non-numeric results) [facility] wt - obtain Normal (applies to {} [place] non-numeric results) [facility] weight - kg 75.4540 {} Normal (applies to 75.4540 {} [place] non-numeric results) [facility] on Body weight 68.374662 68.338147 kg [facility] Measured kg Medical Center Body temperature 36.195167 36.311037 [facility] Respiratory rate 18 /min 18 /min [facility] Oxygen saturation 100 % 100 % [facility] Arterial blood [facility] by Pulse oximetry Heart rate 78 /min 78 /min [facility] Body height 170.860415 170.802846 cm [facility] Diastolic blood 82 mm[Hg] 82 mm[Hg] [facility] pressure [facility] Systolic blood 144 mm[Hg] 144 mm[Hg] [facility] Body mass index 23.4 kg/m2 23.4 kg/m2 [facility] (BMI) [Ratio] Medical [facility] ter Body temperature 37.643141 37.626726 [facility] Respiratory rate 16 /min 16 /min [facility] Oxygen saturation 98 % 98 % [facility] Arterial blood [facility] by Pulse oximetry Heart rate 75 /min 75 /min [facility] Diastolic blood 78 mm[Hg] 78 mm[Hg] [facility] Systolic blood 152 mm[Hg] 152 mm[Hg] [facility] Body temperature 36.104757 36.000633 [facility] Respiratory rate 17 /min 17 /min [facility] Oxygen saturation 100 % 100 % [facility] blood [facility] by Pulse oximetry Heart rate 58 /min 58 /min [facility] Diastolic blood 95 mm[Hg] 95 mm[Hg] [facility] Systolic blood 155 mm[Hg] 155 mm[Hg] [facility] Body temperature 36.068805 36.489816 [facility] Respiratory rate 17 /min 17 /min [facility] Oxygen saturation 98 % 98 % [facility] blood [facility] by Pulse oximetry Heart rate 89 /min 89 /min [facility] Diastolic blood 75 mm[Hg] 75 mm[Hg] [facility] Center Systolic blood 147 mm[Hg] 147 mm[Hg] [facility] Body temperature 36.302664 36.583195 [facility] Respiratory rate 17 /min 17 /min [facility] Oxygen saturation 97 % 97 % [facility] Arterial blood [facility] by Pulse oximetry Heart rate 101 /min 101 /min [facility] Diastolic blood 93 mm[Hg] 93 mm[Hg] [facility] Systolic blood 158 mm[Hg] 158 mm[Hg] [facility] Body temperature 37.131813 37.223470 [facility] Respiratory rate 20 /min 20 /min [facility] Oxygen saturation 98 % 98 % [facility] Arterial blood [facility] by Pulse oximetry Heart rate 80 /min 80 /min [facility] Diastolic blood 87 mm[Hg] 87 mm[Hg] [facility] Systolic blood 151 mm[Hg] 151 mm[Hg] [facility] Body temperature 36.005353 36.367978 [facility] Respiratory rate 17 /min 17 /min [facility] Oxygen saturation 98 % 98 % [facility] Arterial blood [facility] by Pulse oximetry Heart rate 77 /min 77 /min [facility] Diastolic blood 95 mm[Hg] 95 mm[Hg] [facility] Systolic blood 184 mm[Hg] 184 mm[Hg] [facility] Body temperature 36.549874 36.928533 [facility] Respiratory rate 17 /min 17 /min [facility] Oxygen saturation 98 % 98 % [facility] Arterial blood [facility] by Pulse oximetry Heart rate 71 /min 71 /min [facility] Diastolic blood 68 mm[Hg] 68 mm[Hg] [facility] Systolic blood 144 mm[Hg] 144 mm[Hg] [facility] Body weight 75.658708 75.455614 kg [facility] Measured kg [facility] [place] Body temperature 36.003108 36.535085 [facility] Respiratory rate 16 /min 16 /min [facility] Oxygen saturation 98 % 98 % [facility] Arterial blood [facility] by Pulse oximetry Heart rate 75 /min 75 /min [facility] Diastolic blood 91 mm[Hg] 91 mm[Hg] [facility] Center Systolic blood 150 mm[Hg] 150 mm[Hg] [facility] pressure Medical Center PhenX - pain, 9 9 NGOZI ([facility] abdominal - type [place] [facility]) Pt. presenting for Rx's. Body surface area Derived from 1.91 m2 1.91 m2 NGOZI ([facility]) Pt. presenting for Rx's. Body mass index (BMI) 23.2 kg/m2 23.2 kg/m2 [place] ([place] [[facility]] [facility]) Pt. presenting for Rx's. Body weight 162 [lb_av] 162 [lb_av] NGOZI ([facility]) Pt. presenting for Rx's. Body height 70 [in_us] 70 [in_us] NGOZI ([facility]) Pt. presenting for Rx's. Body temperature 97.3 [degF] 97.3 [degF] GREENW AY ([facility]) Pt. presenting for Rx's. Heart rate 60 /min 60 /min NGOZI ([facility]) Pt. presenting for Rx's. Diastolic blood pressure 76 mm[Hg] 76 mm[Hg] NGOZI ([facility]) Pt. presenting for Rx's. Systolic blood pressure 113 mm[Hg] 113 mm[Hg] G REENWAY ([facility]) Pt. presenting for Rx's. PhenX - pain, abdominal - type and 0 0 NGOZI ([facility]) patient presents for medication refills Body surface area Derived from 1.91 m2 1.91 m2 NGOZI ([facility]) patient presents for medication refills Body mass index (BMI) 23.2 kg/m2 23.2 kg/m2 [place] ([place] [[facility]] [facility]) patient presents for medication refills Body weight 162 [lb_av] 162 [lb_av] NGOZI ([facility]) patient presents for medication refills Body height 70 [in_us] 70 [in_us] NGOZI ([facility]) patient presents for medication refills Body temperature 98.4 [degF] 98.4 [degF] GREENW AY ([facility]) patient presents for medication refills Respiratory rate 20 /min 20 /min NGOZI ([facility]) patient presents for medication refills Heart rate 75 /min 75 /min NGOZI ([facility]) patient presents for medication refills Diastolic blood pressure 67 mm[Hg] 67 mm[Hg] NGOZI ([facility]) patient presents for medication refills Systolic blood pressure 101 mm[Hg] 101 mm[Hg] G REENWAY ([facility]) patient presents for medication refills Patient Treatment Plan of Care Planned Activity Planned Date Details Description Data Source (s) Ativan (Lorazepam) I 11/20/2019 [facility] 12:48:54 PM EDT [facility] 0.9% NaCl IV 11/20/2019 [facility] 12:48:50 PM EDT [facility] Oxycodone Hydrochloride 01/29/2018 [place] ([place] 30 MG Oral Tablet 12:00:00 AM [facility]) Omeprazole 20 MG Delayed 01/27/2018 [place] ([place] Release Oral Capsule 12:00:00 AM [facility]) Acetaminophen 325 MG / 06/08/[address] ([place] Oxycodone Hydrochloride 12:00:[address] [facility] 10 MG Oral Tablet Center)
--- NOTE | 2019-12-10 02:27 | PDOC ---
History of Present Illness - General Chief Complaint: Injury Stated Complaint: LT HAND PAIN Time Seen by Provider: 12/10/19 02:22 History Source: Patient Exam Limitations: No Limitations - History of Present Illness Initial Comments: 12/10/19 02:25 This is a 59-year-old male who comes in complaining of left hand pain. Patient said he had a seizure earlier today. Patient has a seizure disorder. Patient said that he injured his hands have the seizure. Patient denies any other complaints. Allergies: as per nursing notes Past Medical History: none Social history: Lives with family. No smoking. No alcohol. No illicit drugs. Surgical history: None General: No fevers or chills, no weakness, no weight loss HEENT: No change in vision. No sore throat,. No ear pain CardioVascular: no chest discomfort. No shortness of breath Respiratory:No cough, or wheezing. Gastrointestinal: no nausea, vomiting, diarrhea or constipation, No rectal bleeding Genitourinary: No dysuria, hematuria, or frequency Musculoskeletal: Left hand pain Neurologic: No headache, vertigo, dizziness or loss of consciousness Psychiatric: nor depression Skin: No rashes or easy bruising Endocrine: no increased thirst or abnormal weight change Allergic: no skin or latex allergy All other systems reviewed and normal GENERAL: The patient is awake, alert, and fully oriented, in no acute distress. HEENT:Head is normal with no signs of trauma. Eyes: Pupils equal, round and reactive to light, Ears, and Throat are normal. Neck is supple. No Lymphadenopathy. EXTREMITIES:atraumatic, Normal range of motion, no edema. Left hand. There is moderate swelling of the left hand wrist and tenderness on palpation. He is intact but range is very limited secondary to pain and swelling. NEUROLOGICAL: Normal speech, normal gait. PSYCH: Normal mood, normal affect. SKIN: Warm, Dry, normal turgor, no rashes or lesions noted. 12/10/19 03:09 Left hand and wrist x-ray were done with a fracture of the left distal ulna Patient's forearm was placed in a splint and he was given a sling 1 follow-up with an orthopedist Past History - Medical History Allergies/Adverse Reactions: Allergies Allergy/AdvReac Type Severity Reaction Status Date / Time No Known Allergies Allergy Verified 03/31/18 12:02 Home Medications: Ambulatory Orders Phenytoin Na Extended [Dilantin -] 300 mg PO ASDIR 03/01/18 Amoxicillin - [Amoxicillin 250mg Capsule -] 250 mg PO TID #21 capsule 03/31/18 Guaifenesin Dm [Robitussin Dm -] 10 ml PO Q4H PRN #120 ml 03/31/18 Methyl Salicylate/Menthol [Bengay Greaseless Cream] 1 applic TP BID #1 cream..g. 03/31/18 Anemia: No Cardiac Disorders: No CVA: No COPD: No CHF: No HTN: No Hypercholesterolemia: No Seizures: Yes - Immunization History Immunization Up to Date: Yes - Psycho-Social/Smoking History Smoking History: Unknown if ever smoked Have you smoked in the past 12 months: Yes Number of Cigarettes Smoked Daily: 20 Cigars Per Day: 10 Information on smoking cessation initiated: No 'Breaking Loose' booklet given: 02/27/15 *Physical Exam - Vital Signs Last Vital Signs Temp Pulse Resp BP Pulse Ox 98 F 80 18 145/93 98 12/10/19 02:05 12/10/19 02:05 12/10/19 02:05 12/10/19 02:05 12/10/19 02:05 Discharge - Discharge Information Problems reviewed: Yes Clinical Impression/Diagnosis: Left forearm fracture Qualifiers: Encounter type: initial encounter Fracture type: closed Qualified Code(s): S52.92XA - Unspecified fracture of left forearm, initial encounter for closed fracture Condition: Stable Disposition: HOME - Admission No - Follow up/Referral Referrals: Ramesh Forbes MD [Staff Physician] - - Patient Discharge Instructions Patient Printed Discharge Instructions: How to Use a Sling Additional Instructions: Tylenol or Motrin as needed for pain. Wear the splint and use your sling for comfort while awake. The orthopedist in the morning and get an appointment to follow-up to get a cast put on your arm Return to the emergency department immediately with ANY new, persistent or worsening symptoms. Continue any medications as previously prescribed by your physician. You should follow up with your primary doctor as soon as possible regarding today's emergency department visit. . Please make sure your doctor reviews the results of your emergency evaluation. Thank you for coming to the Emergency Department today for your care. It was a pleasure to see you today. Please note that your evaluation is INCOMPLETE until you follow-up with your doctor. - Post Discharge Activity
[2019-12-10] MEDS ORDERED: IBUPROFEN 600 MG TABLET (FP) PO ONE ×2 (03:16→03:19)
== END 2019-12-10 03:30 | disposition home or self-care (01) ==
LOC: FER 02:03
DX: S52.92XA Unspecified fracture of left forearm, initial encounter for closed fracture (principal)
CPT/HCPCS: 73110-TC-LT-FY; 73130-TC-LT-FY; 99283-25

== ENCOUNTER 2019-12-12 14:59 | Emergency (ER) | payer OTHER ==
[2019-12-12 15:39] VITALS: BP 147/98; PULSE 71; TEMP 98; BMI 24.0
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
[2019-12-12] MEDS ORDERED: IBUPROFEN 600 MG TABLET (FP) PO ONE ×2 (16:17→16:53)
== END 2019-12-12 17:25 | disposition home or self-care (01) ==
LOC: FER 14:59
DX: S52.202A Unspecified fracture of shaft of left ulna, initial encounter for closed fracture (principal)
CPT/HCPCS: 73070-TC-LT-FY; 73090-TC-LT-FY; 73110-TC-LT-FY; 99285-25

== ENCOUNTER 2024-05-24 12:05 | Observation (INO) | payer OTHER ==
[2024-05-24 14:20] LABS: ABSOLUTE IMMATURE GRANULOCYTES 0.05 x10^3/uL (0.0-0.031); BASOPHILS # 0.05 x10^3/uL (0.01-0.08); EOSINOPHIL % 0.5 % (0.8-7.0); EOSINOPHILS # 0.05 x10^3/uL (0.04-0.54); HEMATOCRIT 48.4 % (40.1-51.0); HEMOGLOBIN 15.8 g/dL (13.7-17.5); MCHC 32.6 g/dl (32.3-36.5); MEAN CELL VOLUME 92.4 fl (79.0-92.2); MEAN PLT VOLUME 8.7 fl (9.4-12.4); MONOCYTE # 0.57 x10^3/uL (0.30-0.82); MONOCYTE % 5.3 % (5.3-12.2); PLATELET COUNT # 426 x10^3/uL (163-337); RDW 13.8 % (12.2-16.4)
[2024-05-24 14:26] LABS: INR 1.06 (0.83-1.09); PROTHROMBIN TIME (PATIENT) 11.7 SEC (9.7-13.0)
[2024-05-24 14:29] LABS: ACTIVATED PTT 31.5 SECONDS (25.2-36.5)
[2024-05-24 14:40] LABS: POTASSIUM 4.6 mmol/L (3.5-5.1)
[2024-05-24 14:42] LABS: CALCIUM 9.6 mg/dL (8.5-10.1)
[2024-05-24 14:43] LABS: ALBUMIN 3.8 g/dl (3.4-5.0); BLOOD UREA NITROGEN 12.8 mg/dL (7-18)
[2024-05-24 14:47] LABS: BILIRUBIN,TOTAL 0.4 mg/dL (0.2-1); TOT PROT 7.2 g/dl (6.4-8.2)
[2024-05-24 19:43] LABS: EPI CELLS 3 /uL (0-25.1); HYALINE CASTS 0 /uL (0-3.1); PH,URINE 7.5 (5.0-8.0); URINE APPEARANCE CLEAR; URINE BACTERIA 4 /uL (0-1359); URINE BILIRUBIN NEGATIVE (NEGATIVE); URINE COLOR YELLOW; URINE GLUCOSE (UA) TRACE (NEGATIVE); URINE KETONE TRACE (NEGATIVE); URINE LEUK ESTERASE NEGATIVE (NEGATIVE); URINE NITRITE NEGATIVE (NEGATIVE); URINE PROTEIN 1+ (NEGATIVE); URINE RBC 45 /uL (0-23.9); URINE WBC 2 /uL (0-25.8)
[2024-05-24 22:39] VITALS: RESP 18
[2024-05-25 06:46] VITALS: BMI 20.7
[2024-05-25 09:13] LABS: ABSOLUTE IMMATURE GRANULOCYTES 0.03 x10^3/uL (0.0-0.031); BASOPHILS # 0.06 x10^3/uL (0.01-0.08); EOSINOPHIL % 0.7 % (0.8-7.0); EOSINOPHILS # 0.08 x10^3/uL (0.04-0.54); HEMATOCRIT 48.1 % (40.1-51.0); HEMOGLOBIN 15.7 g/dL (13.7-17.5); MCHC 32.6 g/dl (32.3-36.5); MEAN CELL VOLUME 91.1 fl (79.0-92.2); MEAN PLT VOLUME 8.9 fl (9.4-12.4); MONOCYTE # 0.73 x10^3/uL (0.30-0.82); MONOCYTE % 6.5 % (5.3-12.2); PLATELET COUNT # 442 x10^3/uL (163-337)
[2024-05-25] MEDS: NICOTINE 14 MG/24 HOURS TOPICAL PATCH TD SCH (09:45)
[2024-05-25] MEDS: ENOXAPARIN NA (PORCINE) 40 MG/0.4 ML DISP.SYRIN SQ SCH (09:45)
[2024-05-25 23:50] LABS: METHADONE, UR NEGATIVE (NEGATIVE); PHENCYCLIDINE,URINE NEGATIVE (NEGATIVE); URINE BARBITURATES NEGATIVE (NEGATIVE)
[2024-05-25 23:56] LABS: COCAINE, UR POSITIVE (NEGATIVE); OPIATES, URI NEGATIVE (NEGATIVE); URINE AMPHETAMINES NEGATIVE (NEGATIVE); URINE BENZODIAZEPINES NEGATIVE (NEGATIVE)
[2024-05-26] MEDS ORDERED: ACETAMINOPHEN 325 MG TABLET (FP) PO PRN (07:32)
[2024-05-26 11:14] VITALS: BP 130/86; PULSE 91; TEMP 97.9
== END 2024-05-26 12:40 | disposition home or self-care (01) ==
LOC: JER 12:05 → JERBED 05-25 03:28 → J5S 05-25 05:55
PROVIDERS: ATTEND Internal Medicine
DX: G40.909 Epilepsy, unspecified, not intractable, without status epilepticus (principal); M06.9 Rheumatoid arthritis, unspecified; M19.90 Unspecified osteoarthritis, unspecified site; Z59.01 Sheltered homelessness; F17.210 Nicotine dependence, cigarettes, uncomplicated; R53.1 Weakness; R26.2 Difficulty in walking, not elsewhere classified
CPT/HCPCS: 0241U-QW; 36415; 71046-TC-FY; 80053; 80307; 81003; 83735; 84484; 85025; 85610; 85730; 86850; 86900; 86901; 87077; 87086; 97116-GP; 97161-GP; 99285-25; G0378

== ENCOUNTER 2024-08-06 01:05 | Emergency (ER) | payer OTHER ==
[2024-08-06 01:22] VITALS: BMI 19.2
[2024-08-06] MEDS ORDERED: LIDOCAINE 1%/EPI 1:100000 (20 ML MULTI DOSE VIAL) ONE (01:32)
[2024-08-06] MEDS ORDERED: DIPHTH,PERTUSS(ACELL),TET 0.5 ML DISP.SYRIN IM ONE (01:43)
[2024-08-06] MEDS: DIPHTH,PERTUSS(ACELL),TET 0.5 ML DISP.SYRIN IM ONE (01:50)
[2024-08-06] MEDS: LIDOCAINE HCL 2% (50ML VIAL) SQ ONE (01:51)
[2024-08-06 02:05] LABS: ABSOLUTE IMMATURE GRANULOCYTES 0.03 x10^3/uL (0.0-0.031); BASOPHILS # 0.07 x10^3/uL (0.01-0.08); EOSINOPHIL % 3.7 % (0.8-7.0); EOSINOPHILS # 0.33 x10^3/uL (0.04-0.54); HEMATOCRIT 37.2 % (40.1-51.0); HEMATOCRIT 37.4 % (40.1-51.0); HEMOGLOBIN 12.1 g/dL (13.7-17.5); HEMOGLOBIN 12.2 g/dL (13.7-17.5); MCHC 32.5 g/dl (32.3-36.5); MCHC 32.6 g/dl (32.3-36.5); MEAN CELL VOLUME 92.8 fl (79.0-92.2); MEAN PLT VOLUME 8.8 fl (9.4-12.4); MONOCYTE # 0.62 x10^3/uL (0.30-0.82); PLATELET COUNT 321 x10^3/uL (163-337); PLATELET COUNT 326 x10^3/uL (163-337); RDW 14.9 % (12.2-16.4)
[2024-08-06] MEDS ORDERED: HALOPERIDOL LACTATE 5 MG/ML ONE (02:26)
[2024-08-06] MEDS: HALOPERIDOL DECANOATE 500 MG/5ML MDV IM ONE (02:30)
[2024-08-06] MEDS: HALOPERIDOL LACTATE 5 MG/ML IM ONE (02:31)
[2024-08-06] MEDS ORDERED: LIDOCAINE 2.5%/PRILOCAINE 2.5% (5 Gram/TUBE) TP ONE (02:40)
[2024-08-06] MEDS ORDERED: LORazepam 2 MG/ML SDV VIAL ONE (02:40)
[2024-08-06 02:58] LABS: CHLORIDE 108 mmol/L (98-107); POTASSIUM 4.3 mmol/L (3.5-5.1); SODIUM 141 mmol/L (136-145)
[2024-08-06 03:00] LABS: ALBUMIN 3.1 g/dl (3.4-5.0); ANION GAP 8 mmol/L (4-13); BLOOD UREA NITROGEN 27.3 mg/dL (7-18); CALCIUM 8.8 mg/dL (8.5-10.1); CO2 25 mmol/L (21-32); GLUCOSE,RANDOM 182 mg/dL (74-106)
[2024-08-06] MEDS: LIDOCAINE 2.5%/PRILOCAINE 2.5% 30 GRAM TUBE TP ONE (03:00)
[2024-08-06 03:02] LABS: SGOT/AST 41 U/L (15-37); SGPT/ALT 31 U/L (13-61)
[2024-08-06 03:04] LABS: CREATININE 1.1 mg/dL (0.55-1.3)
[2024-08-06 03:05] LABS: BILIRUBIN,TOTAL 0.2 mg/dL (0.2-1)
[2024-08-06 03:06] LABS: ALK PHOS 124 U/L (45-117)
[2024-08-06 04:14] VITALS: BP 123/77; PULSE 83; RESP 18; TEMP 98.1
== END 2024-08-06 05:03 | disposition short-term general hospital (02) ==
LOC: JER 01:05
PROC: 0HQ1XZZ Repair Face Skin, External Approach (ICD-10-PCS; principal; 2024-08-06)
PROC: 3E033GC Introduction of Other Therapeutic Substance into Peripheral Vein, Percutaneous Approach (ICD-10-PCS; 2024-08-06)
PROC: 3E023GC Introduction of Other Therapeutic Substance into Muscle, Percutaneous Approach (ICD-10-PCS; 2024-08-06)
PROC: 3E0234Z Introduction of Serum, Toxoid and Vaccine into Muscle, Percutaneous Approach (ICD-10-PCS; 2024-08-06)
DX: S01.111A Laceration without foreign body of right eyelid and periocular area, initial encounter (principal); S61.214A Laceration without foreign body of right ring finger without damage to nail, initial encounter; S40.211A Abrasion of right shoulder, initial encounter; S80.211A Abrasion, right knee, initial encounter; R45.1 Restlessness and agitation; W01.0XXA Fall on same level from slipping, tripping and stumbling without subsequent striking against object, initial encounter; Y92.410 Unspecified street and highway as the place of occurrence of the external cause; Y93.02 Activity, running
CPT/HCPCS: 36415; 70450-TC; 72125-TC; 73130-TC-RT-FY; 80053; 80307; 84484; 85025; 85027; 90715; 99285-25

== ENCOUNTER 2024-08-16 13:45 | Observation (INO) | payer OTHER ==
[2024-08-16 13:52] VITALS: BMI 22.3
[2024-08-16] MEDS: LACTATED RINGERS SOLUTION 1000 ML INFUS.BAG IV ONE (15:00)
[2024-08-16] MEDS: PIPERACILLIN/TAZOB 4.5 GM 4.5 GM in DEXTROSE 5%-WATER 100 ML IVPB ONE (15:35)
[2024-08-16] MEDS ORDERED: VANCOMYCIN 1 GM PREMIX (F) 1 GM/200 ML BAG ONE (15:42)
[2024-08-16] MEDS ORDERED: PIPERACILLIN/TAZOB 4.5 GM 4.5 GM/100 ML BAG IVPB ONE (15:42)
[2024-08-16] MEDS: VANCOMYCIN 1,000 MG in DEXTROSE 5%-WATER - 250 ML IVPB ONE (15:55)
[2024-08-16 16:11] LABS: ABSOLUTE IMMATURE GRANULOCYTES 0.02 x10^3/uL (0.0-0.031); BASOPHILS # 0.05 x10^3/uL (0.01-0.08); EOSINOPHIL % 2.8 % (0.8-7.0); HEMATOCRIT 40.5 % (40.1-51.0); HEMOGLOBIN 13.3 g/dL (13.7-17.5); MCHC 32.8 g/dl (32.3-36.5); MEAN CELL VOLUME 90.6 fl (79.0-92.2); MEAN PLT VOLUME 8.5 fl (9.4-12.4); MONOCYTE # 0.59 x10^3/uL (0.30-0.82); MONOCYTE % 8.4 % (5.3-12.2); PLATELET COUNT 374 x10^3/uL (163-337); RDW 14.5 % (12.2-16.4)
[2024-08-16 16:23] LABS: PROTHROMBIN TIME (PATIENT) 10.9 SEC (9.7-13.0)
[2024-08-16 16:25] LABS: ACTIVATED PTT 28.3 SECONDS (25.2-36.5)
[2024-08-16 16:33] LABS: ALBUMIN 3.2 g/dl (3.4-5.0); BLOOD UREA NITROGEN 20.8 mg/dL (7-18); CALCIUM 9.4 mg/dL (8.5-10.1); POTASSIUM 4.3 mmol/L (3.5-5.1)
[2024-08-16 16:34] LABS: MAGNESIUM 2.1 mg/dL (1.8-2.4)
[2024-08-16 16:39] LABS: BILIRUBIN,TOTAL 0.2 mg/dL (0.2-1); TOT PROT 6.1 g/dl (6.4-8.2)
[2024-08-17] MEDS ORDERED: PIPERACILLIN/TAZOB 3.375 GM 3.375 GM/50 ML BAG IVPB ONE (00:43)
[2024-08-17] MEDS: PIPERACILLIN/TAZOB 3.375 GM 3.375 GM in DEXTROSE 5%-WATER - 50 ML IVPB SCH ×3 (00:57→09:10)
[2024-08-17] MEDS ORDERED: ACETAMINOPHEN 325 MG TABLET (FP) PO PRN (02:17)
[2024-08-17] MEDS ORDERED: KETOROLAC TROMETHAMINE 10 MG TABLET PO PRN (02:17)
[2024-08-17] MEDS: VANCOMYCIN/WATER FOR INJ (PEG) 1,000 MG/200 ML BAG IVPB SCH (03:44)
[2024-08-17] MEDS ORDERED: VANCOMYCIN 1,000 MG in DEXTROSE 5%-WATER - 250 ML IVPB SCH (06:00)
[2024-08-17 08:46] LABS: ABSOLUTE IMMATURE GRANULOCYTES 0.02 x10^3/uL (0.0-0.031); BASOPHILS # 0.06 x10^3/uL (0.01-0.08); EOSINOPHIL % 1.9 % (0.8-7.0); EOSINOPHILS # 0.14 x10^3/uL (0.04-0.54); HEMATOCRIT 45.5 % (40.1-51.0); HEMOGLOBIN 14.7 g/dL (13.7-17.5); MCHC 32.3 g/dl (32.3-36.5); MEAN CELL VOLUME 90.8 fl (79.0-92.2); MEAN PLT VOLUME 8.8 fl (9.4-12.4); MONOCYTE # 0.57 x10^3/uL (0.30-0.82); MONOCYTE % 7.6 % (5.3-12.2); PLATELET COUNT 404 x10^3/uL (163-337); RDW 14.6 % (12.2-16.4)
[2024-08-17 09:09] LABS: POTASSIUM 4.6 mmol/L (3.5-5.1)
[2024-08-17 09:13] LABS: ALBUMIN 3.2 g/dl (3.4-5.0); BLOOD UREA NITROGEN 15.9 mg/dL (7-18); CALCIUM 9.4 mg/dL (8.5-10.1); MAGNESIUM 2.2 mg/dL (1.8-2.4)
[2024-08-17 09:16] LABS: PHOSPHOROUS 3.7 mg/dL (2.5-4.9)
[2024-08-17 09:17] LABS: CREATININE 1.1 mg/dL (0.55-1.3)
[2024-08-17 09:18] LABS: BILIRUBIN,TOTAL 0.6 mg/dL (0.2-1); TOT PROT 6.3 g/dl (6.4-8.2)
[2024-08-17] MEDS: NICOTINE 14 MG/24 HOURS TOPICAL PATCH TD SCH (09:55)
[2024-08-17] MEDS ORDERED: ENOXAPARIN NA (PORCINE) 40 MG/0.4 ML DISP.SYRIN SQ SCH (10:00)
[2024-08-17 13:22] LABS: URINE BARBITURATES NEGATIVE (NEGATIVE)
[2024-08-17 13:23] LABS: METHADONE, UR NEGATIVE (NEGATIVE); PHENCYCLIDINE,URINE NEGATIVE (NEGATIVE); URINE BENZODIAZEPINES NEGATIVE (NEGATIVE)
[2024-08-17 13:40] LABS: COCAINE, UR POSITIVE (NEGATIVE); OPIATES, URI NEGATIVE (NEGATIVE); URINE AMPHETAMINES NEGATIVE (NEGATIVE)
[2024-08-17] MEDS ORDERED: PIPERACILLIN/TAZOBACTAM 3.375 GM VIAL IVPB ONE (15:20)
[2024-08-18] MEDS: VANCOMYCIN HCL IN 5 % DEXTROSE 1,250 MG/250 ML BAG IV SCH (06:56)
[2024-08-18 08:30] LABS: MEAN CELL VOLUME 95.6 fl (79.0-92.2); MEAN PLT VOLUME 9.3 fl (9.4-12.4)
[2024-08-18 08:59] LABS: HEMATOCRIT 39.1 % (40.1-51.0); HEMOGLOBIN 12.3 g/dL (13.7-17.5); MCHC 31.5 g/dl (32.3-36.5); PLATELET COUNT 328 x10^3/uL (163-337)
[2024-08-18 11:44] LABS: ABSOLUTE IMMATURE GRANULOCYTES 0.02 x10^3/uL (0.0-0.031); BASOPHILS # 0.06 x10^3/uL (0.01-0.08); EOSINOPHIL % 3.1 % (0.8-7.0); EOSINOPHILS # 0.22 x10^3/uL (0.04-0.54); HEMATOCRIT 44.4 % (40.1-51.0); HEMOGLOBIN 14.5 g/dL (13.7-17.5); MCHC 32.7 g/dl (32.3-36.5); MEAN CELL VOLUME 91.2 fl (79.0-92.2); MEAN PLT VOLUME 8.7 fl (9.4-12.4); MONOCYTE # 0.52 x10^3/uL (0.30-0.82); MONOCYTE % 7.3 % (5.3-12.2); PLATELET COUNT 380 x10^3/uL (163-337); RDW 14.4 % (12.2-16.4)
[2024-08-18] MEDS: POTASSIUM CHLORIDE ORAL LIQUID 20 MEQ/15 ML PO ONE (11:56)
[2024-08-18 12:20] LABS: POTASSIUM 4.4 mmol/L (3.5-5.1)
[2024-08-18 12:23] LABS: BLOOD UREA NITROGEN 20.7 mg/dL (7-18); CALCIUM 9.3 mg/dL (8.5-10.1)
[2024-08-18 12:28] LABS: BILIRUBIN,TOTAL 0.3 mg/dL (0.2-1); TOT PROT 6.1 g/dl (6.4-8.2)
[2024-08-18] MEDS: OLANZapine 5 MG TABLET PO SCH (22:04)
[2024-08-19 08:13] LABS: ABSOLUTE IMMATURE GRANULOCYTES 0.02 x10^3/uL (0.0-0.031); BASOPHILS # 0.06 x10^3/uL (0.01-0.08); EOSINOPHIL % 4.3 % (0.8-7.0); EOSINOPHILS # 0.27 x10^3/uL (0.04-0.54); HEMATOCRIT 45.1 % (40.1-51.0); HEMOGLOBIN 14.7 g/dL (13.7-17.5); MCHC 32.6 g/dl (32.3-36.5); MEAN CELL VOLUME 90.9 fl (79.0-92.2); MEAN PLT VOLUME 8.9 fl (9.4-12.4); MONOCYTE # 0.56 x10^3/uL (0.30-0.82); MONOCYTE % 8.9 % (5.3-12.2); PLATELET COUNT 386 x10^3/uL (163-337); RDW 14.4 % (12.2-16.4)
[2024-08-19 09:02] LABS: POTASSIUM 4.4 mmol/L (3.5-5.1)
[2024-08-19 09:13] LABS: ALBUMIN 3.1 g/dl (3.4-5.0); BLOOD UREA NITROGEN 22.4 mg/dL (7-18)
[2024-08-19 09:16] LABS: CALCIUM 9.4 mg/dL (8.5-10.1)
[2024-08-19 09:17] LABS: CREATININE 1.1 mg/dL (0.55-1.3)
[2024-08-19 09:23] LABS: BILIRUBIN,TOTAL 0.4 mg/dL (0.2-1); TOT PROT 6.1 g/dl (6.4-8.2)
[2024-08-19] MEDS: ENOXAPARIN NA (PORCINE) 40 MG/0.4 ML DISP.SYRIN SQ SCH (09:31)
[2024-08-19 09:37] VITALS: BP 130/101; PULSE 81; RESP 17; TEMP 98.2
[2024-08-20] MEDS ORDERED: VANCOMYCIN HCL IN 5 % DEXTROSE 1,250 MG/250 ML BAG IV SCH (06:00)
== END 2024-08-19 13:21 | disposition home or self-care (01) ==
LOC: JER 13:45 → JERBED 22:12 → J6S 08-17 01:26
PROVIDERS: ADMIT Internal Medicine; ATTEND Internal Medicine
DX: S61.214D Laceration without foreign body of right ring finger without damage to nail, subsequent encounter (principal); F60.2 Antisocial personality disorder; F19.10 Other psychoactive substance abuse, uncomplicated; S61.216D Laceration without foreign body of right little finger without damage to nail, subsequent encounter; Z59.00 Homelessness unspecified; G40.909 Epilepsy, unspecified, not intractable, without status epilepticus; S09.90XA Unspecified injury of head, initial encounter; R29.6 Repeated falls; F12.90 Cannabis use, unspecified, uncomplicated; X58.XXXD Exposure to other specified factors, subsequent encounter; X58.XXXA Exposure to other specified factors, initial encounter; F17.200 Nicotine dependence, unspecified, uncomplicated
CPT/HCPCS: 36415; 70450-TC; 73110-TC-RT-FY; 73130-TC-RT-FY; 73200-TC-RT; 73201-TC-RT; 80053; 80307; 82962; 83735; 84100; 85025; 85027; 85610; 85651; 85730; 86140; 87070; 87077; 87205; 93005; 93010; 96365; 96366; 96367; 96368; 99285-25; G0378; G0480

== ENCOUNTER 2024-08-24 18:48 | Emergency (ER) | payer OTHER ==
[2024-08-24 19:24] VITALS: BP 126/100; PULSE 67; RESP 20; TEMP 98.8; BMI 30.7
[2024-08-24 19:54] LABS: ABSOLUTE IMMATURE GRANULOCYTES 0.02 x10^3/uL (0.0-0.031); BASOPHILS # 0.06 x10^3/uL (0.01-0.08); EOSINOPHIL % 2.8 % (0.8-7.0); HEMATOCRIT 38.6 % (40.1-51.0); HEMOGLOBIN 12.7 g/dL (13.7-17.5); MCHC 32.9 g/dl (32.3-36.5); MEAN CELL VOLUME 91.7 fl (79.0-92.2); MEAN PLT VOLUME 9.1 fl (9.4-12.4); MONOCYTE # 0.46 x10^3/uL (0.30-0.82); MONOCYTE % 6.3 % (5.3-12.2); PLATELET COUNT 372 x10^3/uL (163-337); RDW 14.5 % (12.2-16.4)
[2024-08-24 20:02] LABS: INR 1.06 (0.83-1.09); PROTHROMBIN TIME (PATIENT) 11.5 SEC (9.7-13.0)
[2024-08-24 20:05] LABS: ACTIVATED PTT 28.4 SECONDS (25.2-36.5)
[2024-08-24 20:15] LABS: POTASSIUM 3.9 mmol/L (3.5-5.1)
[2024-08-24 20:17] LABS: CALCIUM 9.5 mg/dL (8.5-10.1)
[2024-08-24 20:18] LABS: ALBUMIN 3.3 g/dl (3.4-5.0)
[2024-08-24 20:22] LABS: BILIRUBIN,TOTAL 0.4 mg/dL (0.2-1); CREATININE 0.9 mg/dL (0.55-1.3)
[2024-08-24 20:23] LABS: TOT PROT 6.2 g/dl (6.4-8.2)
[2024-08-24 20:26] LABS: N-TERMINAL BNP 97.5 pg/ml (5-125)
== END 2024-08-24 20:26 | disposition home or self-care (01) ==
LOC: JER 18:48
DX: R45.6 Violent behavior (principal); R46.4 Slowness and poor responsiveness; R45.1 Restlessness and agitation
CPT/HCPCS: 36415; 71045-TC-FY; 80053; 83735; 83880; 84484; 85025; 85610; 85730; 93005; 93010; 99285-25